=== PATIENT | male | born 1985 | race Caucasian/White ===

== ENCOUNTER 2019-05-12 19:02 | Emergency (ER) | payer SELFPAY ==
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
[2019-05-12] MEDS ORDERED: FLU Vacc QS2019-20(6MOS+)/PF 60 MCG/0.5 ML SYRINGE IM ONE (19:45)
--- NOTE | 2019-05-13 07:06 | CR ---
Right hand: Four views of the right hand were obtained. Comparison: No previous right hand study. Joint spaces are preserved. No fracture, dislocation or other bony abnormality is seen. Impression: 1. No abnormality is appreciated on right hand exam. Diagnostic code #1
== END 2019-05-12 20:29 | disposition home or self-care (01) ==
LOC: JD.ED 19:02
DX: S69.91XA Unspecified injury of right wrist, hand and finger(s), initial encounter (principal); F17.210 Nicotine dependence, cigarettes, uncomplicated; Z88.8 Allergy status to other drugs, medicaments and biological substances; W22.8XXA Striking against or struck by other objects, initial encounter; Y93.01 Activity, walking, marching and hiking
CPT/HCPCS: 73130-26-RT; 73130-RT; 90471; 90686; 99282; 99283-25

== ENCOUNTER 2020-05-19 12:26 | Inpatient (IN) | payer SELFPAY ==
[2020-05-19] MEDS ORDERED: Ondansetron 4 MG/2 ML SDV IVPUSH ONE (12:57)
[2020-05-19] MEDS ORDERED: Ibuprofen 600 MG Tab PO ONE (12:58)
[2020-05-19] MEDS ORDERED: Dextrose 5%-0.9% NaCl 1,000 ML IV SCH ×2 (13:00→15:00)
[2020-05-19] MEDS ORDERED: Linezolid 600 MG in Premix Bag 1 BAG IV ONE (13:02)
--- NOTE | 2020-05-19 13:08 | EDM.PDOC ---
ED HPI GENERAL MEDICAL PROBLEM - General Chief Complaint: Skin Complaint Stated Complaint: SKIN COMPLAINT/EXPOSED TO MRSA Time Seen by Provider: 05/19/20 12:51 Source of Information: Reports: Patient History Limitations: Reports: No Limitations - History of Present Illness INITIAL COMMENTS - FREE TEXT/NARRATIVE: 34-year-old male presents to the ED with acute onset of severe pain and swelling the right hemiface involving his upper and lower eyelid and right ear with extension of erythema and swelling to the posterior angle of his mandible and right lateral neck in zone 3. Patient reports that he has had an ongoing fungal infection involving several lesions on his hands forearms and one on each facial cheek for the last several [id number]--lesions on his hands have been present for about 3 weeks.. He states he was in contact with his ex- who apparently has recently diagnosed MRSA. Patient states he developed significant erythematous and swelling of his entire right hemiface over the last 12 to 16 hours. He has developed fever and chills overnight and this morning. In fact he is experiencing rigors in the ED. Mild associated nausea and diarrhea. States he has had 3 loose bowel movements today with no blood. Feels weak lightheaded. Patient has never had a previous MRSA infection to his knowledge. Onset: Sudden Onset Date: 05/18/20 Onset Time: 18:00 Duration: Hour(s):, Getting Worse Location: Reports: Head, Face, Neck, Upper Extremity, Left ( forearm. Lt hand and forearm), Upper Extremity, Right (Hand) Quality: Reports: Ache Severity: Severe Improves with: Reports: None Worsens with: Reports: Other (In the area. Even swallowing hurts due to the swelling in his right lateral neck.) Context: Reports: Sick Contact (From his ex- within the last week. Exposure to MRSA). Denies: Activity, Exercise, Lifting, Trauma, Other Associated Symptoms: Reports: Fever/Chills, Headaches, Loss of Appetite, Malaise, Nausea/Vomiting, Weakness, Other (Generalized. Diarrhea 3 times thus far today. Did yesterday). Denies: Cough, cough w sputum, Diaphoresis, Rash, Seizure, Shortness of Breath (Without vomiting), Syncope Treatments [employer]: Reports: Other (see below) (None.) - Related Data Allergies Allergy/AdvReac Type Severity Reaction Status Date / Time imipramine Allergy Unknown Cannot Verified 05/19/20 14:19 Remember Home Meds: Home Meds . [No Known Home Meds] 05/12/19 [History] Past Medical History - Past Health History Medical/Surgical History: Denies Medical/Surgical History Respiratory History: Reports: Asthma - Past Surgical History HEENT Surgical History: Reports: Tonsillectomy Musculoskeletal Surgical History: Reports: Other (See Below) (Previous laceration repair mid left forearm with a definitive divot in the area suggesting muscle involvement) Social & Family History - Family History Family Medical History: No Pertinent Family History - Tobacco Use Tobacco Use Status *Q: Current Some Day Tobacco User Tobacco Use Within Last Twelve Months: Cigarettes (2-5 per day.) Years of Tobacco use: 10 Packs/Tins Daily: 0.2 - Caffeine Use Caffeine Use: Reports: Energy Drinks, Soda - Living Situation & Occupation Living situation: Reports: , Other (with a friend) Occupation: Employed ([employer]) ED ROS GENERAL - Review of Systems Review Of Systems: See Below Constitutional: Reports: Fever, Chills, Malaise, Weakness, Fatigue, Decreased Appetite HEENT: Reports: Other (Hemifacial pain right ear pain with current illness) Respiratory: Reports: Cough (Minimal nonproductive cough) Cardiovascular: Reports: Lightheadedness (With current illness.). Denies: Chest Pain, Blood Pressure Problem, Claudication, Dyspnea on Exertion, Edema, Orthopnea, Palpitations Endocrine: Reports: No Symptoms GI/Abdominal: Reports: Diarrhea (Has had 2 loose stools this morning. Believes one loose stool 2 days ago and 1 or 2 yesterday.), Nausea. Denies: Hematemesis, Hematochezia, Vomiting : Reports: No Symptoms Musculoskeletal: Reports: Other (Severe pain both hands at sites of infection. Pain right throat and neck.) Skin: Reports: Other (Patient has multiple skin lesions knuckles of both hands particularly the dorsal MCP joints and PIP joint left thumb. Pustules are evident compatible with suspect MRSA infection. Patient has been using topical Lamisil cream for suspect fungal infection of the skin x3 weeks. Patient has a lesion on each facial cheek the right much larger than the left.) ED EXAM, SKIN/RASH Exam: See Below Exam Limited By: No Limitations General Appearance: Alert, Moderate Distress, Other (Patient does appear acutely ill. He has severe erythema of the entire right hemiface with edema of the upper and lower eyelid on the right side compared with cellulitis involvement. Right ear is also involved as is the entire right hemiface and right side of his neck particular at the angle of his right mandible. He feels warm to palpation. Nurses record temperature is 36.8. Heart rate was 104 and sinus tachycardia at the bedside. Respiratory rate is 18 with O2 sats of 99 to 100%. Blood pressure 131/98. He has no history of hypertension) Eye Exam: Bilateral Eye: Periorbital Changes (Marked erythema and swelling of both upper and lower eyelids with 50% closure of the right eye due to swelling and infection), PERRL Ears: Other (Right ear is diffusely erythematous particularly the superior two thirds of the ear pinna and tender to touch.) Nose: Normal Inspection Throat/Mouth: Other (Oropharynx is mildly erythematous. Tongue is dry and coated. Patient has a 1 cm circular skin lesion ulceration right facial cheek. A smaller 6 mm skin lesion present on the left facial cheek which appears to be healing. He has diffuse erythema of the entire right hemiface particular noted right temporal right forehead right angle of the mandible right ear and zone 3 right side of neck.) Head: Atraumatic, Normocephalic, Facial Swelling (Entire right hemiface is swollen due to erythema), Facial Tenderness ( and infection.). No: Sinus Tenderness ( Entire right hemiface.) Neck: Lymphadenopathy (R) (Patient does have lymphadenopathy right neck.. He is very swollen at the angle of his right mandible and there are's several lymph nodes in the posterior and anterior chain superiorly that are enlarged and tender to touch suggesting lymphadenitis. Currently infection is pretty well confined to zone 3 of the neck. It is going to spread into zone 2.). No: Supple, Non-Tender, Lymphadenopathy (L) Respiratory/Chest: No Respiratory Distress, Lungs Clear, Normal Breath Sounds, No Accessory Muscle Use Cardiovascular: Normal Peripheral Pulses, Regular Rate, Rhythm, No Edema, No Gallop, No Murmur Peripheral Pulses: 3+: Carotid (L), Carotid (R) (Very tender right side of ne ck), Posterior Tibial (L), Posterior Tibial (R), Dorsalis Pedis (L), Dorsalis Pedis (R) GI/Abdominal: Soft, Non-Tender, No Organomegaly, No Mass, Pelvis Stable, Abnormal Bowel Sounds, Other (No surgical scars.) (Male) Exam: No Hernia Back Exam: Normal Inspection, Full Range of Motion. No: CVA Tenderness (L), CVA Tenderness (R) Extremities: Other (She has numerous pustules on both hands over primarily the PIP and MCP joints of both hands. Pustules are evident on the left hand in multiple locations. A sampling of pus was obtained from lesions dorsal aspect of left thumb for suspect MRSA. The lesions have the appearance of MRSA infection. Questionable picking or neurodermatitis.) Neurological: Alert, Oriented, CN II-XII Intact, Normal Cognition Psychiatric: Normal Affect, Normal Mood Skin: Warm, Dry, Other (And has a severe cellulitis of the right hemiface including the right side of his forehead which extends up into his frontal scalp. Right temporal face. It also involves the entire right facial cheek with marked swelling at the angle of his right mandible. Currently has mild trismus. Right ear is also erythematous and tender indicating infection as well in the ear pinna. He has diffuse inflammation of his entire right lateral neck in zone 3 with pain to palpation. There is a ulceration right mid facial cheek likely acting as the nidus for infection of the skin of the face and neck. Apparently this has been present for about 12 days. He has a similar smaller lesion left facial cheek which she reports is healing. Multiple pustules on both hands with evidence of surrounding erythema and infection without cellulitis in either upper extremity.) Characteristics: Other (Pustular lesions both hands.) Associated features: Warmth, Tenderness, Swelling, Inflammation Course - Vital Signs Last Recorded V/S: Last Vital Signs Temp 36.8 C 05/19/20 12:35 Pulse 103 H 05/19/20 12:35 Resp 18 05/19/20 12:35 BP 131/98 H 05/19/20 12:35 Pulse Ox 100 05/19/20 12:35 - Orders/Labs/Meds Orders: Active Orders 24 hr Category Date Time Status CULTURE BLOOD [BC] Stat Lab 05/19/20 13:30 Received CULTURE BLOOD [BC] Stat Lab 05/19/20 13:30 Received CULTURE WOUND [RM] Stat Lab 05/19/20 13:57 Ordered DRUG SCREEN, URINE [URCHEM] Stat Lab 05/19/20 13:08 Ordered LACTIC ACID [CHEM] Stat Lab 05/19/20 13:30 Received Dextrose 5%-0.9% NaCl [Dextrose 5%-Normal Saline] 1,000 Med 05/19/20 13:00 Active ml IV ASDIRECTED Blood Culture x2 Reflex Set [OM.PC] Stat Oth 05/19/20 12:57 Ordered Medication Orders Hydromorphone HCl (Dilaudid) 0.5 mg IVPUSH Q2H PRN PRN Reason: Pain (severe 7-10) Dextrose/Sodium Chloride (Dextrose 5%-Normal Saline) 1,000 mls @ 125 mls/hr IV ASDIRECTED PAUL Last Admin: 05/19/20 13:23 Dose: 125 mls/hr Documented by: JUAREZ Piperacillin Sod/Tazobactam (Sod 4.5 gm/ Sodium Chloride) 100 mls @ 200 mls/hr IV ONETIME ONE Stop: 05/19/20 15:19 Piperacillin Sod/Tazobactam (Sod 4.5 gm/ Sodium Chloride) 100 mls @ 25 mls/hr IV Q8H PAUL Dextrose/Sodium Chloride (Dextrose 5%-Normal Saline) 1,000 mls @ 125 mls/hr IV ASDIRECTED PAUL Ibuprofen (Motrin) 600 mg PO Q6H PRN PRN Reason: Pain (moderate 4-6) Ketorolac Tromethamine (Toradol) 30 mg IV Q6H PRN PRN Reason: Pain (moderate 4-6) Nicotine (Habitrol) 7 mg TRDERM DAILY [facility] Ondansetron HCl (Zofran) 4 mg IV Q4H PRN PRN Reason: Nausea/Vomiting Vancomycin HCl (Pharmacy To Dose - Vancomycin) 1 dose .XX ASDIRECTED PRN PRN Reason: RX TO DOSE VANCO Labs: Laboratory Tests 05/19/20 05/19/20 05/19/20 Range/Units 13:05 13:05 13:05 WBC 9.83 H (4.23-9.07) K/mm3 RBC 4.87 (4.63-6.08) M/mm3 Hgb 15.3 (13.7-17.5) gm/dl Hct 43.9 (40.1-51.0) % MCV 90.1 (79.0-92.2) fl MCH 31.4 (25.7-32.2) pg MCHC 34.9 (32.2-35.5) g/dl RDW Std Deviation 39.3 (35.1-43.9) fL Plt Count 250 (163-337) K/mm3 MPV 9.9 (9.4-12.3) fl Neutrophils % (Manual) 74 H (40-60) % Band Neutrophils % 0 (0-10) % Lymphocytes % (Manual) 15 L (20-40) % Atypical Lymphs % 0 % Monocytes % (Manual) 10 (2-10) % Eosinophils % (Manual) 1 (0.8-7.0) % Basophils % (Manual) 0 L (0.2-1.2) Platelet Estimate Adequate RBC Morph Comment Normal ESR (0-15) mm/hr PT 11.2 (9.7-12.0) SECONDS INR 1.05 APTT 28.8 (21.7-31.4) SECONDS Sodium 138 (136-145) mEq/L Potassium 3.8 (3.5-5.1) mEq/L Chloride 101 (98-107) mEq/L Carbon Dioxide 27 (21-32) mEq/L Anion Gap 13.8 (5-15) BUN 10 (7-18) mg/dL Creatinine 1.1 (0.7-1.3) mg/dL Est Cr Clr Drug Dosing 105.24 mL/min Estimated GFR (MDRD) > 60 (>60) mL/min BUN/Creatinine Ratio 9.1 L (14-18) Glucose 94 (74-106) mg/dL Calcium 9.0 (8.5-10.1) mg/dL Magnesium 1.8 (1.8-2.4) mg/dl Total Bilirubin 0.7 (0.2-1.0) mg/dL AST 11 L (15-37) U/L ALT 16 (16-63) U/L Alkaline Phosphatase 83 (46-116) U/L C-Reactive Protein 8.7 H* (<1.0) mg/dL Total Protein 7.4 (6.4-8.2) g/dl Albumin 3.6 (3.4-5.0) g/dl Globulin 3.8 gm/dL Albumin/Globulin Ratio 1.0 (1-2) SARS-CoV-2 RNA (KRYSTLE) (NEGATIVE) 05/19/20 05/19/20 Range/Units 13:05 13:30 WBC (4.23-9.07) K/mm3 RBC (4.63-6.08) M/mm3 Hgb (13.7-17.5) gm/dl Hct (40.1-51.0) % MCV (79.0-92.2) fl MCH (25.7-32.2) pg MCHC (32.2-35.5) g/dl RDW Std Deviation (35.1-43.9) fL Plt Count (163-337) K/mm3 MPV (9.4-12.3) fl Neutrophils % (Manual) (40-60) % Band Neutrophils % (0-10) % Lymphocytes % (Manual) (20-40) % Atypical Lymphs % % Monocytes % (Manual) (2-10) % Eosinophils % (Manual) (0.8-7.0) % Basophils % (Manual) (0.2-1.2) Platelet Estimate RBC Morph Comment ESR 13 (0-15) mm/hr PT (9.7-12.0) SECONDS INR APTT (21.7-31.4) SECONDS Sodium (136-145) mEq/L Potassium (3.5-5.1) mEq/L Chloride (98-107) mEq/L Carbon Dioxide (21-32) mEq/L Anion Gap (5-15) BUN (7-18) mg/dL Creatinine (0.7-1.3) mg/dL Est Cr Clr Drug Dosing mL/min Estimated GFR (MDRD) (>60) mL/min BUN/Creatinine Ratio (14-18) Glucose (74-106) mg/dL Calcium (8.5-10.1) mg/dL Magnesium (1.8-2.4) mg/dl Total Bilirubin (0.2-1.0) mg/dL AST (15-37) U/L ALT (16-63) U/L Alkaline Phosphatase (46-116) U/L C-Reactive Protein (<1.0) mg/dL Total Protein (6.4-8.2) g/dl Albumin (3.4-5.0) g/dl Globulin gm/dL Albumin/Globulin Ratio (1-2) SARS-CoV-2 RNA (KRYSTLE) Negative (NEGATIVE) Meds: Medications Generic Name Dose Route Start Last Admin Trade Name Freq PRN Reason Stop Dose Admin Hydromorphone HCl 0.5 mg 05/19/20 14:42 Dilaudid IVPUSH Q2H PRN Pain (severe 7-10) Dextrose/Sodium Chloride 1,000 mls @ 125 mls/hr 05/19/20 13:00 05/19/20 13:23 Dextrose 5%-Normal Saline IV 125 mls/hr ASDIRECTED PAUL Administration Piperacillin Sod/Tazobactam 100 mls @ 200 mls/hr 05/19/20 14:50 Sod 4.5 gm/ Sodium Chloride IV 05/19/20 15:19 ONETIME ONE Piperacillin Sod/Tazobactam 100 mls @ 25 mls/hr 05/19/20 23:00 Sod 4.5 gm/ Sodium Chloride IV Q8H PAUL Dextrose/Sodium Chloride 1,000 mls @ 125 mls/hr 05/19/20 15:00 Dextrose 5%-Normal Saline IV ASDIRECTED [facility] Ibuprofen 600 mg 05/19/20 14:42 Motrin PO Q6H PRN Pain (moderate 4-6) Ketorolac Tromethamine 30 mg 05/19/20 14:42 Toradol IV Q6H PRN Pain (moderate 4-6) Nicotine 7 mg 05/20/20 09:00 Habitrol TRDERM DAILY [facility] Ondansetron HCl 4 mg 05/19/20 14:42 Zofran IV Q4H PRN Nausea/Vomiting Vancomycin HCl 1 dose 05/20/20 15:00 Pharmacy To Dose - Vancomycin .XX ASDIRECTED PRN RX TO DOSE VANCO Discontinued Medications Generic Name Dose Route Start Last Admin Trade Name Freq PRN Reason Stop Dose Admin Hydromorphone HCl 0.5 mg 05/19/20 13:46 05/19/20 14:21 Dilaudid IVPUSH 05/19/20 13:47 0.5 mg ONETIME ONE Administration Linezolid 600 mg/ Premix 300 mls @ 300 mls/hr 05/19/20 13:02 05/19/20 13:24 IV 05/19/20 14:01 300 mls/hr ONETIME ONE Administration Vancomycin HCl 2 gm/ Sodium 500 mls @ 250 mls/hr 05/19/20 13:17 Chloride IV 05/19/20 13:18 ONETIME ONE Ibuprofen 600 mg 05/19/20 12:58 05/19/20 13:25 Motrin PO 05/19/20 12:59 600 mg ONETIME ONE Administration Ondansetron HCl 4 mg 05/19/20 12:57 05/19/20 13:25 Zofran IVPUSH 05/19/20 12:58 4 mg ONETIME ONE Administration - Radiology Interpretation Free Text/Narrative:: 34-year-old male presents to the ED with a pustular dermatitis involving both hands particularly the PIP joints and MCP joints of both hands left hand slightly worse on the right. Currently pustules left thumb left dorsal index finger. Sampling obtained from the dorsal aspect of left thumb with purulent material obtained for culture. Suspect MRSA infection. He has developed a significant right hemifacial swelling involving his right ear and upper and lower eyelids and right hemiface involving his forehead up into the frontal scalp. He is also got swelling at the angle of his right mandible and right lateral neck in zone 3 which apparently developed since 1800 hrs. last night. Associated fever chills nausea and diarrhea. He denies cough. Clinically the patient has MRSA cellulitis over the right hemiface and neck. It also appears that he has multiple pustules in both hands and he reports that numerous skin lesions on his hands are being treated with topical antifungal cream for the last 3 weeks. Patient is going to require hospital admission IV antibiotics. He will be screened for COVID-19 illness. Chest x-ray will be obtained as well as a septic work-up including a lactic acid and blood cultures x2. I will start him on Zyvox 600 mg every 12 hours and initial dose of vancomycin 2 g will be administered in the ED. - Re-Assessments/Exams Free Text/Narrative Re-Assessment/Exam: 05/19/20 13:43 chest x-ray done portably reveals mildly hyperinflated lung peters. There is a early groundglass appearance to the right lower lobe medial heart border.White count is minimally elevated at 9.83 with 74% neutrophils and no bands cells reported. Hemoglobin is 15.3 with hematocrit of 43.9. PT is 11.2 with an INR slightly elevated at 1.05. PTT is 28.8. He reports pain is 7 out of 10 particularly left hand where it feels like it is throbbing and pulsating and burning. Right hemiface is throbbing and burning as well. I will therefore give him Dilaudid 0.5 mg IV. 05/19/20 15:04 Chemistry shows a sodium of 138 and a potassium of 3.8. Chloride 101 with a bicarb of 27. Anion gap is 13.8. BUN is 10 with a creatinine of 1.1. Estimated GFR is greater than 60. Glucose is 94 with a calcium of 9.0 magnesium is 1.8 liver function is normal. C-reactive protein elevated at 8.7. Total protein is normal at 7.4 with an albumin fraction of 3.6. COVID-19 screen is negative. Patient will be admitted to the med surgery floor for IV antibiotics due to suspected aggressive MRSA cellulitis of face ear and neck. Departure - Departure Time of Disposition: 15:04 Disposition: Admitted As Inpatient 65 Condition: Fair Clinical Impression: Facial cellulitis, Cellulitis of neck, Pustules determined by examination, Hand ulceration, limited to breakdown of skin, Fever and chills Skin ulcer of face Qualifiers: Non-pressure ulcer stage: limited to breakdown of skin Qualified Code(s): L98.491 - Non-pressure chronic ulcer of skin of other sites limited to breakdown of skin Cellulitis Qualifiers: Site of cellulitis: periorbital Laterality: right Qualified Code(s): L03.213 - Periorbital cellulitis - Discharge Information *PRESCRIPTION DRUG MONITORING PROGRAM REVIEWED*: Not Applicable *COPY OF PRESCRIPTION DRUG MONITORING REPORT IN PATIENT JAYCEE: Not Applicable Sepsis Event Note (ED) - Evaluation Sepsis Screening Result: No Definite Risk - Focused Exam Vital Signs: Vital Signs Temp Pulse Resp BP Pulse Ox 05/19/20 12:35 36.8 C 103 H 18 131/98 H 100 - My Orders Last 24 Hours: My Active Orders 05/19/20 12:57 Blood Culture x2 Reflex Set [OM.PC] Stat 05/19/20 13:00 Dextrose 5%-0.9% NaCl [Dextrose 5%-Normal Saline] 1,000 ml IV ASDIRECTED 05/19/20 13:08 DRUG SCREEN, URINE [URCHEM] Stat 05/19/20 13:30 CULTURE BLOOD [BC] Stat CULTURE BLOOD [BC] Stat LACTIC ACID [CHEM] Stat 05/19/20 13:57 CULTURE WOUND [RM] Stat - Assessment/Plan Last 24 Hours: My Active Orders 05/19/20 12:57 Blood Culture x2 Reflex Set [OM.PC] Stat 05/19/20 13:00 Dextrose 5%-0.9% NaCl [Dextrose 5%-Normal Saline] 1,000 ml IV ASDIRECTED 05/19/20 13:08 DRUG SCREEN, URINE [URCHEM] Stat 05/19/20 13:30 CULTURE BLOOD [BC] Stat CULTURE BLOOD [BC] Stat LACTIC ACID [CHEM] Stat 05/19/20 13:57 CULTURE WOUND [RM] Stat
[2020-05-19] MEDS ORDERED: Vancomycin 2 GM in Sodium Chloride 0.9% 500 ML IV ONE (13:17)
--- NOTE | 2020-05-19 13:41 | CR ---
Chest:: Portable view of the chest was obtained. Comparison: No prior chest imaging is available. Findings: Heart and mediastinum: Heart size and mediastinum appear within normal limits. Lungs and pleura: Lungs are clear with no acute parenchymal change. No abnormal pleural disease is seen. Bony structures: Bony structures show no discrete abnormality. Impression: 1. No acute intrathoracic process is seen on portable chest x-ray. Diagnostic code #1
[2020-05-19] MEDS ORDERED: HYDROmorphone 0.5 MG/0.5 ML Syringe IVPUSH ONE (13:46)
[2020-05-19] MEDS ORDERED: HYDROmorphone 0.5 MG/0.5 ML Syringe IVPUSH PRN (14:42)
[2020-05-19] MEDS ORDERED: Ondansetron 4 MG/2 ML SDV IV PRN (14:42)
[2020-05-19] MEDS ORDERED: Piperacillin/Tazobactam 4.5 GM in Sodium Chloride 0.9% 100 ML IV ONE (14:50)
--- NOTE | 2020-05-19 15:33 | PCM.HP.2 ---
H&P History of Present Illness - General Date of Service: 05/19/20 Admit Problem/Dx: Admission Diagnosis/Problem Admission Diagnosis/Problem Cellulitis Source of Information: Patient, Provider History Limitations: Reports: No Limitations - History of Present Illness Initial Comments - Free Text/Narative: 34-year-old male presents to the ED with acute onset of severe pain and swelling the right hemiface involving his upper and lower eyelid and right ear with extension of erythema and swelling to the posterior angle of his mandible and right lateral neck in zone 3. Patient reports that he has had an ongoing fungal infection involving several lesions on his hands forearms and one on each facial cheek for the last several [id number]--lesions on his hands have been present for about 3 weeks.. He states he was in contact with his ex- who apparently has recently diagnosed MRSA. Patient states he developed significant erythematous and swelling of his entire right hemiface that started about 3 days ago. He applied antifungal cream to his face and he states that initially it got better, but then significantly worse yesterday. He has developed fever and chills overnight and this morning. In fact he is experiencing rigors in the ED. Mild associated nausea and diarrhea. States he has had 3 loose bowel movements today with no blood. Feels weak lightheaded. Patient has never had a previous MRSA infection to his knowledge. Onset of Symptoms: Reports: Gradual - Related Data Allergies/Adverse Reactions: Allergies Allergy/AdvReac Type Severity Reaction Status Date / Time imipramine Allergy Unknown Cannot Verified 05/19/20 14:19 Remember Home Medications: Home Meds . [No Known Home Meds] 05/12/19 [History] Past Medical History - Past Health History Medical/Surgical History: Denies Medical/Surgical History Respiratory History: Reports: Asthma - Past Surgical History HEENT Surgical History: Reports: Tonsillectomy Musculoskeletal Surgical History: Reports: Other (See Below) (Previous laceration repair mid left forearm with a definitive divot in the area suggesting muscle involvement) Social & Family History - Family History Family Medical History: No Pertinent Family History - Tobacco Use Tobacco Use Status *Q: Current Some Day Tobacco User Years of Tobacco use: 10 Packs/Tins Daily: 0.2 - Caffeine Use Caffeine Use: Reports: Energy Drinks, Soda - Living Situation & Occupation Living situation: Reports: , Other (with a friend) Occupation: Employed ([email or web address]) H&P Review of Systems - Review of Systems: Review Of Systems: See Below General: Reports: Fever, Chills, Malaise HEENT: Reports: No Symptoms Pulmonary: Reports: No Symptoms Cardiovascular: Reports: No Symptoms Gastrointestinal: Reports: Diarrhea. Denies: Nausea, Vomiting Genitourinary: Reports: No Symptoms Musculoskeletal: Reports: No Symptoms Skin: Reports: Other (cellulitis noted to the entire right side of his face and forehead, right ear, and right side of his neck) Psychiatric: Reports: No Symptoms Neurological: Reports: No Symptoms Hematologic/Lymphatic: Reports: No Symptoms Immunologic: Reports: No Symptoms Exam - Exam Exam: See Below - Vital Signs Vital Signs: Last Vital Signs Temp 98.3 F 05/19/20 12:35 Pulse 103 H 05/19/20 12:35 Resp 18 05/19/20 12:35 BP 131/98 H 05/19/20 12:35 Pulse Ox 100 05/19/20 12:35 Weight: 175 lb - Exam General: Alert, Oriented, Cooperative HEENT: Conjunctiva Clear, EOMI, Hearing Intact, Mucosa Moist & [place], Pupils Equal, Pupils Reactive Neck: Supple, Trachea Midline, Lymphadenopathy (right preauricular, mandibular, anterior cervical, post auricular, tonsillar) Lungs: Clear to Auscultation, Normal Respiratory Effort Cardiovascular: Regular Rate, Regular Rhythm GI/Abdominal Exam: Normal Bowel Sounds, Soft, Non-Tender, No Distention (Male) Exam: Deferred Rectal (Males) Exam: Deferred Back Exam: Normal Inspection, Full Range of Motion Extremities: Normal Inspection, Normal Range of Motion, Non-Tender, No Pedal Edema, Normal Capillary Refill Peripheral Pulses: 2+: Radial (L), Radial (R), Dorsalis Pedis (L), Dorsalis Pedis (R) Skin: Warm, Dry, Other (approx 20 scabbed/weeping ulcers noted to bilateral knuckles, scabbed weaping ulcer noted to right cheek, area of pustules noted to right side of forehead, right facial swelling noted mid forehead around right eye down to right mandible, significant swelling noted to right ear and down the right side of patient's neck) Neurological: Cranial Nerves Intact Neuro Extensive - Mental Status: Alert, Oriented x3, Normal Mood/Affect, Normal Cognition, Memory Intact Neuro Extensive - Motor, Sensory, Reflexes: Normal Gait Psychiatric: Alert, Normal Affect, Normal Mood - Patient Data Lab Results Last 24 hrs: Laboratory Results - last 24 hr 05/19/20 05/19/20 05/19/20 Range/Units 13:05 13:05 13:05 WBC 9.83 H (4.23-9.07) K/mm3 RBC 4.87 (4.63-6.08) M/mm3 Hgb 15.3 (13.7-17.5) gm/dl Hct 43.9 (40.1-51.0) % MCV 90.1 (79.0-92.2) fl MCH 31.4 (25.7-32.2) pg MCHC 34.9 (32.2-35.5) g/dl RDW Std Deviation 39.3 (35.1-43.9) fL Plt Count 250 (163-337) K/mm3 MPV 9.9 (9.4-12.3) fl Neutrophils % (Manual) 74 H (40-60) % Band Neutrophils % 0 (0-10) % Lymphocytes % (Manual) 15 L (20-40) % Atypical Lymphs % 0 % Monocytes % (Manual) 10 (2-10) % Eosinophils % (Manual) 1 (0.8-7.0) % Basophils % (Manual) 0 L (0.2-1.2) Platelet Estimate Adequate RBC Morph Comment Normal ESR (0-15) mm/hr PT 11.2 (9.7-12.0) SECONDS INR 1.05 APTT 28.8 (21.7-31.4) SECONDS Sodium 138 (136-145) mEq/L Potassium 3.8 (3.5-5.1) mEq/L Chloride 101 (98-107) mEq/L Carbon Dioxide 27 (21-32) mEq/L Anion Gap 13.8 (5-15) BUN 10 (7-18) mg/dL Creatinine 1.1 (0.7-1.3) mg/dL Est Cr Clr Drug Dosing 105.24 mL/min Estimated GFR (MDRD) > 60 (>60) mL/min BUN/Creatinine Ratio 9.1 L (14-18) Glucose 94 (74-106) mg/dL Lactic Acid (0.4-2.0) mmol/L Calcium 9.0 (8.5-10.1) mg/dL Magnesium 1.8 (1.8-2.4) mg/dl Total Bilirubin 0.7 (0.2-1.0) mg/dL AST 11 L (15-37) U/L ALT 16 (16-63) U/L Alkaline Phosphatase 83 (46-116) U/L C-Reactive Protein 8.7 H* (<1.0) mg/dL Total Protein 7.4 (6.4-8.2) g/dl Albumin 3.6 (3.4-5.0) g/dl Globulin 3.8 gm/dL Albumin/Globulin Ratio 1.0 (1-2) SARS-CoV-2 RNA (KRYSTLE) (NEGATIVE) 05/19/20 05/19/20 05/19/20 Range/Units 13:05 13:30 13:30 WBC (4.23-9.07) K/mm3 RBC (4.63-6.08) M/mm3 Hgb (13.7-17.5) gm/dl Hct (40.1-51.0) % MCV (79.0-92.2) fl MCH (25.7-32.2) pg MCHC (32.2-35.5) g/dl RDW Std Deviation (35.1-43.9) fL Plt Count (163-337) K/mm3 MPV (9.4-12.3) fl Neutrophils % (Manual) (40-60) % Band Neutrophils % (0-10) % Lymphocytes % (Manual) (20-40) % Atypical Lymphs % % Monocytes % (Manual) (2-10) % Eosinophils % (Manual) (0.8-7.0) % Basophils % (Manual) (0.2-1.2) Platelet Estimate RBC Morph Comment ESR 13 (0-15) mm/hr PT (9.7-12.0) SECONDS INR APTT (21.7-31.4) SECONDS Sodium (136-145) mEq/L Potassium (3.5-5.1) mEq/L Chloride (98-107) mEq/L Carbon Dioxide (21-32) mEq/L Anion Gap (5-15) BUN (7-18) mg/dL Creatinine (0.7-1.3) mg/dL Est Cr Clr Drug Dosing mL/min Estimated GFR (MDRD) (>60) mL/min BUN/Creatinine Ratio (14-18) Glucose (74-106) mg/dL Lactic Acid 1.0 (0.4-2.0) mmol/L Calcium (8.5-10.1) mg/dL Magnesium (1.8-2.4) mg/dl Total Bilirubin (0.2-1.0) mg/dL AST (15-37) U/L ALT (16-63) U/L Alkaline Phosphatase (46-116) U/L C-Reactive Protein (<1.0) mg/dL Total Protein (6.4-8.2) g/dl Albumin (3.4-5.0) g/dl Globulin gm/dL Albumin/Globulin Ratio (1-2) SARS-CoV-2 RNA (KRYSTLE) Negative (NEGATIVE) Result Diagrams: 05/19/20 13:05 05/19/20 13:05 Sepsis Event Note - Evaluation Sepsis Screening Result: No Definite Risk - Focused Exam Vital Signs: Vital Signs Temp Pulse Resp BP Pulse Ox 05/19/20 12:35 98.3 F 103 H 18 131/98 H 100 - Problem List (1) Cellulitis of neck SNOMED Code(s): 99766764 ICD Code: L03.221 - CELLULITIS OF NECK Status: Acute Priority: High Current Visit: Yes (2) Facial cellulitis SNOMED Code(s): 002133291 ICD Code: L03.211 - CELLULITIS OF FACE Status: Acute Priority: High Current Visit: Yes (3) Fever and chills SNOMED Code(s): 531082617 ICD Code: R50.9 - FEVER, UNSPECIFIED Status: Acute Priority: High Current Visit: Yes (4) Hand ulceration, limited to breakdown of skin SNOMED Code(s): 87816052, 554528573, 473421825 ICD Code: L98.491 - NON-PRS CHRONIC ULCER SKIN/ SITES LIMITED TO BRKDWN SKIN Status: Acute Priority: High Current Visit: Yes (5) Pustules determined by examination SNOMED Code(s): 198224319 ICD Code: L08.9 - LOCAL INFECTION OF THE SKIN AND SUBCUTANEOUS TISSUE, UNSP Status: Acute Priority: High Current Visit: Yes (6) Skin ulcer of face SNOMED Code(s): 219830128 ICD Code: L98.499 - NON-PRESSURE CHRONIC ULCER OF SKIN OF SITES W UNSP SEVERITY Status: Acute Priority: High Current Visit: Yes Qualifiers: Non-pressure ulcer stage: limited to breakdown of skin Qualified Code(s): L98.491 - Non-pressure chronic ulcer of skin of other sites limited to breakdown of skin Problem List Initiated/Reviewed/Updated: Yes Orders Last 24hrs: Active Orders 24 hr Category Date Time Status Admission Status [Patient Status] [ADT] Routine ADT 05/19/20 15:07 Active Patient Status [ADT] Routine ADT 05/19/20 14:42 Active Ambulate [RC] ASDIRECTED Care 05/19/20 14:42 Active Ambulate [RC] PER UNIT ROUTINE Care 05/19/20 14:44 Active Oxygen Therapy [RC] PRN Care 05/19/20 14:42 Active VTE/DVT Education [RC] PER UNIT ROUTINE Care 05/19/20 14:42 Active Vital Signs [RC] Q4H Care 05/19/20 14:42 Active Regular Diet [DIET] Diet 05/19/20 Dinner Active BASIC METABOLIC PANEL,BMP [CHEM] AM Lab 05/20/20 05:11 Ordered CBC WITH AUTO DIFF [HEME] AM Lab 05/20/20 05:11 Ordered CULTURE BLOOD [BC] Stat Lab 05/19/20 13:30 Received CULTURE BLOOD [BC] Stat Lab 05/19/20 13:30 Received CULTURE WOUND [RM] Stat Lab 05/19/20 13:57 Ordered DRUG SCREEN, URINE [URCHEM] Stat Lab 05/19/20 13:08 Ordered VANCOMYCIN TROUGH [CHEM] Timed Lab 05/20/20 14:00 Ordered Dextrose 5%-0.9% NaCl [Dextrose 5%-Normal Saline] 1,000 Med 05/19/20 13:00 Active ml IV ASDIRECTED Dextrose 5%-0.9% NaCl [Dextrose 5%-Normal Saline] 1,000 Med 05/19/20 15:00 Active ml IV ASDIRECTED HYDROmorphone [Dilaudid] Med 05/19/20 14:42 Active 0.5 mg IVPUSH Q2H PRN Ibuprofen [Motrin] Med 05/19/20 14:42 Active 600 mg PO Q6H PRN Ketorolac [Toradol] Med 05/19/20 14:42 Active 30 mg IV Q6H PRN Nicotine [Habitrol] Med 05/20/20 09:00 Active 7 mg TRDERM DAILY Ondansetron [Zofran] Med 05/19/20 14:42 Active 4 mg IV Q4H PRN Pharmacy to Dose - Vancomycin Med 05/20/20 15:00 Active 1 dose .XX ASDIRECTED PRN Piperacillin/Tazobactam [Piperacil-Tazobact] 4.5 gm Med 05/20/20 00:30 Active Sodium Chloride 0.9% [Normal Saline] 100 ml IV Q8H Vancomycin 1 gm Med 05/19/20 23:00 Active Vancomycin 250 mg Sodium Chloride 0.9% [Normal Saline] 250 ml IV Q8H Blood Culture x2 Reflex Set [OM.PC] Stat Oth 05/19/20 12:57 Ordered Resuscitation Status Routine Resus Stat 05/19/20 14:42 Ordered Medication Orders Hydromorphone HCl (Dilaudid) 0.5 mg IVPUSH Q2H PRN PRN Reason: Pain (severe 7-10) Dextrose/Sodium Chloride (Dextrose 5%-Normal Saline) 1,000 mls @ 125 mls/hr IV ASDIRECTED [facility] Last Admin: 05/19/20 13:23 Dose: 125 mls/hr Documented by: [email or web address] Piperacillin Sod/Tazobactam (Sod 4.5 gm/ Sodium Chloride) 100 mls @ 25 mls/hr IV Q8H [facility] Dextrose/Sodium Chloride (Dextrose 5%-Normal Saline) 1,000 mls @ 125 mls/hr IV ASDIRECTED [facility] Vancomycin HCl 1 gm/Vancomycin HCl 250 mg/ Sodium Chloride 250 mls @ 166.667 mls/hr IV Q8H [facility] Ibuprofen (Motrin) 600 mg PO Q6H PRN PRN Reason: Pain (moderate 4-6) Ketorolac Tromethamine (Toradol) 30 mg IV Q6H PRN PRN Reason: Pain (moderate 4-6) Nicotine (Habitrol) 7 mg TRDERM DAILY [facility] Ondansetron HCl (Zofran) 4 mg IV Q4H PRN PRN Reason: Nausea/Vomiting Vancomycin HCl (Pharmacy To Dose - Vancomycin) 1 dose .XX ASDIRECTED PRN PRN Reason: RX TO DOSE VANCO Assessment/Plan Comment:: 05/19/20 * 34-year-old male with gradual onset (over the course of the last 3 days ) of facial swelling * Reports ongoing fungal infection involving several lesions on his hands and forearms and one on each facial cheek for about 3 weeks. * Reports recent exposure to MRSA. * Denies previous MRSA infection * Initial vital signs in the emergency department reveal a temp of 36.8 Celsius, pulse 103, respiratory rate 18, blood pressure 131/98, pulse ox 100% on room air. * Labs in the ED reveal: WBC 9.83, ESR 13, C-reactive protein 8.7, lactic acid 1.0 and the patient is Covid negative. * The patient did receive linezolid 600 mg IV and vancomycin 2 g IV in the emergency department. * Wound cultures and blood cultures were obtained prior to starting antibiotics PLAN: Cellulitis of neck, Facial cellulitis, Fever and chills, Hand ulceration, limited to breakdown of skin, Pustules determined by examination, Skin ulcer of face * Admit to [facility] * Patient will receive IV vancomycin with pharmacy to dose and IV Zosyn to treat cellulitis. * Awaiting culture and sensitivity report that was obtained in the emergency department * D5NS at 125 an hour * Patient to be up independently and ambulate in his room * Vital signs every 4 hours * Obtain urine drug screen that was ordered in the emergency department * Pain control * Contact isolation precautions * Regular diet * Repeat labs in the a.m. specifically inflammatory markers - Mortality Measure Prognosis:: Good
[2020-05-19] MEDS: Ibuprofen 600 MG Tab PO PRN (21:05)
[2020-05-19] MEDS: Vancomycin 1 GM, Vancomycin 250 MG in Sodium Chloride 0.9% 250 ML IV SCH (23:20)
[2020-05-20] MEDS: Piperacillin/Tazobactam 4.5 GM in Sodium Chloride 0.9% 100 ML IV SCH ×3 (02:36→17:42)
[2020-05-20] MEDS: Vancomycin 1 GM, Vancomycin 250 MG in Sodium Chloride 0.9% 250 ML IV SCH ×2 (06:57→15:44)
[2020-05-20] MEDS: Ketorolac 30 MG/ML SDV IV PRN ×2 (07:24→15:45)
[2020-05-20] MEDS: Nicotine 7 MG/24 Hr Patch TRDERM SCH (09:05)
--- NOTE | 2020-05-20 14:05 | PCM.PN ---
- General Info Date of Service: 05/20/20 Admission Dx/Problem (Free Text): Admission Diagnosis/Problem Admission Diagnosis/Problem Cellulitis Subjective Update: Patient doing better today. Significant amount of decrease in swelling and redness to patient's face ear and right side of neck. Functional Status: Reports: Pain Controlled, Tolerating Diet, Ambulating, Urinating - Review of Systems General: Reports: Chills HEENT: Reports: No Symptoms Pulmonary: Reports: No Symptoms Cardiovascular: Reports: No Symptoms Gastrointestinal: Reports: No Symptoms Genitourinary: Reports: No Symptoms Musculoskeletal: Reports: No Symptoms Skin: Reports: Other Neurological: Reports: No Symptoms Psychiatric: Reports: No Symptoms - Patient Data Vitals - Most Recent: Last Vital Signs Temp 97.5 F 05/20/20 08:01 Pulse 71 05/20/20 08:01 Resp 16 05/20/20 08:01 BP 103/66 05/20/20 08:01 Pulse Ox 95 05/20/20 08:01 Weight - Most Recent: 174 lb I&O - Last 24 Hours: Intake & Output 05/19/20 05/20/20 05/20/20 22:59 06:59 14:59 Intake Total 240 1967 180 Balance 240 1967 180 Lab Results Last 24 Hours: Laboratory Results - last 24 hr 05/19/20 05/19/20 05/19/20 Range/Units 13:05 13:05 13:30 WBC (4.23-9.07) K/mm3 RBC (4.63-6.08) M/mm3 Hgb (13.7-17.5) gm/dl Hct (40.1-51.0) % MCV (79.0-92.2) fl MCH (25.7-32.2) pg MCHC (32.2-35.5) g/dl RDW Std Deviation (35.1-43.9) fL Plt Count (163-337) K/mm3 MPV (9.4-12.3) fl Neut % (Auto) (34.0-67.9) % Lymph % (Auto) (21.8-53.1) % Blanco % (Auto) (5.3-12.2) % Eos % (Auto) (0.8-7.0) Baso % (Auto) (0.1-1.2) % Neut # (Auto) (1.78-5.38) K/mm3 Lymph # (Auto) (1.32-3.57) K/mm3 Blanco # (Auto) (0.30-0.82) K/mm3 Eos # (Auto) (0.04-0.54) K/mm3 Baso # (Auto) (0.01-0.08) K/mm3 ESR 13 (0-15) mm/hr Sodium 138 (136-145) mEq/L Potassium 3.8 (3.5-5.1) mEq/L Chloride 101 (98-107) mEq/L Carbon Dioxide 27 (21-32) mEq/L Anion Gap 13.8 (5-15) BUN 10 (7-18) mg/dL Creatinine 1.1 (0.7-1.3) mg/dL Est Cr Clr Drug Dosing 105.24 mL/min Estimated GFR (MDRD) > 60 (>60) mL/min BUN/Creatinine Ratio 9.1 L (14-18) Glucose 94 (74-106) mg/dL Lactic Acid (0.4-2.0) mmol/L Calcium 9.0 (8.5-10.1) mg/dL Magnesium 1.8 (1.8-2.4) mg/dl Total Bilirubin 0.7 (0.2-1.0) mg/dL AST 11 L (15-37) U/L ALT 16 (16-63) U/L Alkaline Phosphatase 83 (46-116) U/L C-Reactive Protein 8.7 H* (<1.0) mg/dL Total Protein 7.4 (6.4-8.2) g/dl Albumin 3.6 (3.4-5.0) g/dl Globulin 3.8 gm/dL Albumin/Globulin Ratio 1.0 (1-2) Urine Opiates Screen (QUJZBH=521) Ur Buprenorphine Scrn (CUTOFF=10) Ur Oxycodone Screen (EBN4AS=037) Urine Methadone Screen (FQH0YL=283) Ur Propoxyphene Screen (ZWUDQJ=439) Ur Barbiturates Screen (RYVHBU=614) Ur Tricyclics Screen (YIVFWH=932) Ur Phencyclidine Scrn (CUTOFF=25) Ur Amphetamine Screen (KPBLZH=116) U Methamphetamines Scrn (LLRDZQ=804) U Benzodiazepines Scrn (KDQYTN=222) U Cocaine Metab Screen (BQHGTR=206) U Marijuana (THC) Screen (CUTOFF=50) SARS-CoV-2 RNA (KRYSTLE) Negative (NEGATIVE) 05/19/20 05/20/20 05/20/20 Range/Units 13:30 00:00 04:34 WBC 4.90 (4.23-9.07) K/mm3 RBC 4.24 L (4.63-6.08) M/mm3 Hgb 13.0 L D (13.7-17.5) gm/dl Hct 39.1 L (40.1-51.0) % MCV 92.2 (79.0-92.2) fl MCH 30.7 (25.7-32.2) pg MCHC 33.2 (32.2-35.5) g/dl RDW Std Deviation 40.5 (35.1-43.9) fL Plt Count 201 (163-337) K/mm3 MPV 10.7 (9.4-12.3) fl Neut % (Auto) 54.6 (34.0-67.9) % Lymph % (Auto) 31.4 (21.8-53.1) % Blanco % (Auto) 12.2 (5.3-12.2) % Eos % (Auto) 1.4 (0.8-7.0) Baso % (Auto) 0.2 (0.1-1.2) % Neut # (Auto) 2.67 (1.78-5.38) K/mm3 Lymph # (Auto) 1.54 (1.32-3.57) K/mm3 Blanco # (Auto) 0.60 (0.30-0.82) K/mm3 Eos # (Auto) 0.07 (0.04-0.54) K/mm3 Baso # (Auto) 0.01 (0.01-0.08) K/mm3 ESR (0-15) mm/hr Sodium (136-145) mEq/L Potassium (3.5-5.1) mEq/L Chloride (98-107) mEq/L Carbon Dioxide (21-32) mEq/L Anion Gap (5-15) BUN (7-18) mg/dL Creatinine (0.7-1.3) mg/dL Est Cr Clr Drug Dosing mL/min Estimated GFR (MDRD) (>60) mL/min BUN/Creatinine Ratio (14-18) Glucose (74-106) mg/dL Lactic Acid 1.0 (0.4-2.0) mmol/L Calcium (8.5-10.1) mg/dL Magnesium (1.8-2.4) mg/dl Total Bilirubin (0.2-1.0) mg/dL AST (15-37) U/L ALT (16-63) U/L Alkaline Phosphatase (46-116) U/L C-Reactive Protein (<1.0) mg/dL Total Protein (6.4-8.2) g/dl Albumin (3.4-5.0) g/dl Globulin gm/dL Albumin/Globulin Ratio (1-2) Urine Opiates Screen Negative (UIQNSO=607) Ur Buprenorphine Scrn Negative (CUTOFF=10) Ur Oxycodone Screen Negative (LVJ1HX=044) Urine Methadone Screen Negative (WVJ5NX=866) Ur Propoxyphene Screen Negative (CATBKP=348) Ur Barbiturates Screen Negative (QASODO=086) Ur Tricyclics Screen Negative (NTTMZI=766) Ur Phencyclidine Scrn Negative (CUTOFF=25) Ur Amphetamine Screen Presumptive positive H (IOVORA=815) U Methamphetamines Scrn Presumptive positive H (BZYDAO=135) U Benzodiazepines Scrn Negative (FPKCTT=730) U Cocaine Metab Screen Negative (TRRNMW=249) U Marijuana (THC) Screen Presumptive positive H (CUTOFF=50) SARS-CoV-2 RNA (KRYSTLE) (NEGATIVE) 05/20/20 Range/Units 04:34 WBC (4.23-9.07) K/mm3 RBC (4.63-6.08) M/mm3 Hgb (13.7-17.5) gm/dl Hct (40.1-51.0) % MCV (79.0-92.2) fl MCH (25.7-32.2) pg MCHC (32.2-35.5) g/dl RDW Std Deviation (35.1-43.9) fL Plt Count (163-337) K/mm3 MPV (9.4-12.3) fl Neut % (Auto) (34.0-67.9) % Lymph % (Auto) (21.8-53.1) % Blanco % (Auto) (5.3-12.2) % Eos % (Auto) (0.8-7.0) Baso % (Auto) (0.1-1.2) % Neut # (Auto) (1.78-5.38) K/mm3 Lymph # (Auto) (1.32-3.57) K/mm3 Blanco # (Auto) (0.30-0.82) K/mm3 Eos # (Auto) (0.04-0.54) K/mm3 Baso # (Auto) (0.01-0.08) K/mm3 ESR (0-15) mm/hr Sodium 138 (136-145) mEq/L Potassium 3.8 (3.5-5.1) mEq/L Chloride 105 (98-107) mEq/L Carbon Dioxide 26 (21-32) mEq/L Anion Gap 10.8 (5-15) BUN 8 (7-18) mg/dL Creatinine 1.0 (0.7-1.3) mg/dL Est Cr Clr Drug Dosing 115.10 mL/min Estimated GFR (MDRD) > 60 (>60) mL/min BUN/Creatinine Ratio 8.0 L (14-18) Glucose 98 (74-106) mg/dL Lactic Acid (0.4-2.0) mmol/L Calcium 8.0 L (8.5-10.1) mg/dL Magnesium (1.8-2.4) mg/dl Total Bilirubin (0.2-1.0) mg/dL AST (15-37) U/L ALT (16-63) U/L Alkaline Phosphatase (46-116) U/L C-Reactive Protein (<1.0) mg/dL Total Protein (6.4-8.2) g/dl Albumin (3.4-5.0) g/dl Globulin gm/dL Albumin/Globulin Ratio (1-2) Urine Opiates Screen (GBKSGW=533) Ur Buprenorphine Scrn (CUTOFF=10) Ur Oxycodone Screen (YIV9RO=185) Urine Methadone Screen (CIM9OZ=889) Ur Propoxyphene Screen (BQCMYR=099) Ur Barbiturates Screen (ALAQAU=409) Ur Tricyclics Screen (PYJGRQ=642) Ur Phencyclidine Scrn (CUTOFF=25) Ur Amphetamine Screen (GCFDCP=692) U Methamphetamines Scrn (TKPDXC=681) U Benzodiazepines Scrn (RCHDML=503) U Cocaine Metab Screen (JFTMPB=321) U Marijuana (THC) Screen (CUTOFF=50) SARS-CoV-2 RNA (KRYSTLE) (NEGATIVE) [place] Results Last 24 Hours: Microbiology 05/19/20 13:30 Aerobic Blood Culture - Preliminary Blood - Venous NO GROWTH AFTER 1 DAY Anaerobic Blood Culture - Preliminary NO GROWTH AFTER 1 DAY 05/19/20 13:30 Aerobic Blood Culture - Preliminary Blood - Venous - Lab Draw NO GROWTH AFTER 1 DAY Anaerobic Blood Culture - Preliminary NO GROWTH AFTER 1 DAY Med Orders - Current: Current Medications Hydromorphone HCl (Dilaudid) 0.5 mg IVPUSH Q2H PRN PRN Reason: Pain (severe 7-10) Last Admin: 05/19/20 23:24 Dose: 0.5 mg Documented by: Piperacillin Sod/Tazobactam (Sod 4.5 gm/ Sodium Chloride) 100 mls @ 25 mls/hr IV Q8H [facility] Last Admin: 05/20/20 08:53 Dose: 25 mls/hr Documented by: Vancomycin HCl 1 gm/Vancomycin HCl 250 mg/ Sodium Chloride 250 mls @ 166.667 mls/hr IV Q8H [facility] Last Admin: 05/20/20 06:57 Dose: 166.667 mls/hr Documented by: Ibuprofen (Motrin) 600 mg PO Q6H PRN PRN Reason: Pain (moderate 4-6) Last Admin: 05/19/20 21:05 Dose: 600 mg Documented by: Ketorolac Tromethamine (Toradol) 30 mg IV Q6H PRN PRN Reason: Pain (moderate 4-6) Last Admin: 05/20/20 07:24 Dose: 30 mg Documented by: Nicotine (Habitrol) 7 mg TRDERM DAILY [facility] Last Admin: 05/20/20 09:05 Dose: Not Given Documented by: Ondansetron HCl (Zofran) 4 mg IV Q4H PRN PRN Reason: Nausea/Vomiting Vancomycin HCl (Pharmacy To Dose - Vancomycin) 1 dose .XX ASDIRECTED PRN PRN Reason: RX TO DOSE VANCO Discontinued Medications Hydromorphone HCl (Dilaudid) 0.5 mg IVPUSH ONETIME ONE Stop: 05/19/20 13:47 Last Admin: 05/19/20 14:21 Dose: 0.5 mg Documented by: Dextrose/Sodium Chloride (Dextrose 5%-Normal Saline) 1,000 mls @ 125 mls/hr IV ASDIRECTED [facility] Last Admin: 05/19/20 13:23 Dose: 125 mls/hr Documented by: Linezolid 600 mg/ Premix 300 mls @ 300 mls/hr IV ONETIME ONE Stop: 05/19/20 14:01 Last Admin: 05/19/20 13:24 Dose: 300 mls/hr Documented by: Vancomycin HCl 2 gm/ Sodium (Chloride) 500 mls @ 250 mls/hr IV ONETIME ONE Stop: 05/19/20 13:18 Last Admin: 05/19/20 15:02 Dose: 250 mls/hr Documented by: Piperacillin Sod/Tazobactam (Sod 4.5 gm/ Sodium Chloride) 100 mls @ 200 mls/hr IV ONETIME ONE Stop: 05/19/20 15:19 Last Admin: 05/19/20 17:42 Dose: 200 mls/hr Documented by: Dextrose/Sodium Chloride (Dextrose 5%-Normal Saline) 1,000 mls @ 125 mls/hr IV ASDIRECTED [facility] Last Admin: 05/19/20 21:16 Dose: 125 mls/hr Documented by: Ibuprofen (Motrin) 600 mg PO ONETIME ONE Stop: 05/19/20 12:59 Last Admin: 05/19/20 13:25 Dose: 600 mg Documented by: Ondansetron HCl (Zofran) 4 mg IVPUSH ONETIME ONE Stop: 05/19/20 12:58 Last Admin: 05/19/20 13:25 Dose: 4 mg Documented by: - Exam Quality Assessment: DVT Prophylaxis. No: Supplemental Oxygen General: Alert, Oriented, Cooperative, No Acute Distress HEENT: Pupils Equal, Pupils Reactive, Mucous Membr. Moist/[place] Neck: Supple, Trachea Midline. No: Lymphadenopathy Lungs: Clear to Auscultation, Normal Respiratory Effort Cardiovascular: Regular Rate, Regular Rhythm, No Murmurs GI/Abdominal Exam: Normal Bowel Sounds, Soft, Non-Tender, No Distention (Male) Exam: Deferred Back Exam: Normal Inspection, Full Range of Motion Extremities: Normal Inspection, Normal Range of Motion, Non-Tender, No Pedal Edema, Limited Range of Motion Peripheral Pulses: 2+: Radial (L), Radial (R), Dorsalis Pedis (L), Dorsalis Pedis (R) Skin: Other (Erythema noted to right side of forehead right side of face down patient's cheek and mandible right ear with erythema and edema. Less erythema noted to right side of neck. Patient does have a small area of pustules above right eyebrow. Numerous scabs noted to his bilateral hands and forearms. No drainage noted from these) Neurological: No New Focal Deficit Psy/Mental Status: Alert, Normal Affect, Normal Mood Sepsis Event Note - Evaluation Sepsis Screening Result: No Definite Risk - Focused Exam Vital Signs: Vital Signs Temp Pulse Resp BP Pulse Ox 05/20/20 08:01 97.5 F 71 16 103/66 95 05/20/20 05:13 97.7 F 67 14 99/65 95 - Problem List & Annotations (1) Cellulitis of neck SNOMED Code(s): 01599722 Code(s): L03.221 - CELLULITIS OF NECK Status: Acute Priority: High Current Visit: Yes (2) Facial cellulitis SNOMED Code(s): 281601465 Code(s): L03.211 - CELLULITIS OF FACE Status: Acute Priority: High Current Visit: Yes (3) Fever and chills SNOMED Code(s): 078692063 Code(s): R50.9 - FEVER, UNSPECIFIED Status: Acute Priority: High Current Visit: Yes (4) Hand ulceration, limited to breakdown of skin SNOMED Code(s): 29246223, 850590975, 428068026 Code(s): L98.491 - NON-PRS CHRONIC ULCER SKIN/ SITES LIMITED TO BRKDWN SKIN Status: Acute Priority: High Current Visit: Yes (5) Pustules determined by examination SNOMED Code(s): 883986000 Code(s): L08.9 - LOCAL INFECTION OF THE SKIN AND SUBCUTANEOUS TISSUE, UNSP Status: Acute Priority: High Current Visit: Yes (6) Skin ulcer of face SNOMED Code(s): 605754001 Code(s): L98.499 - NON-PRESSURE CHRONIC ULCER OF SKIN OF SITES W UNSP SEVERITY Status: Acute Priority: High Current Visit: Yes Qualifiers: Non-pressure ulcer stage: limited to breakdown of skin Qualified Code(s): L98.491 - Non-pressure chronic ulcer of skin of other sites limited to breakdown of skin - Problem List Review Problem List Initiated/Reviewed/Updated: Yes - My Orders Last 24 Hours: My Active Orders 05/19/20 14:42 Patient Status [ADT] Routine Oxygen Therapy [RC] PRN VTE/DVT Education [RC] PER UNIT ROUTINE Vital Signs [RC] Q4HR HYDROmorphone [Dilaudid] 0.5 mg IVPUSH Q2H PRN Ibuprofen [Motrin] 600 mg PO Q6H PRN Ketorolac [Toradol] 30 mg IV Q6H PRN Ondansetron [Zofran] 4 mg IV Q4H PRN Resuscitation Status Routine 05/19/20 14:44 Ambulate [RC] PER UNIT ROUTINE 05/19/20 Dinner Regular Diet [DIET] 05/19/20 23:00 Vancomycin 1 gm Vancomycin 250 mg Sodium Chloride 0.9% [Normal Saline] 250 ml IV Q8H 05/20/20 01:00 Piperacillin/Tazobactam [Piperacil-Tazobact] 4.5 gm Sodium Chloride 0.9% [Normal Saline] 100 ml IV Q8H 05/20/20 09:00 Nicotine [Habitrol] 7 mg TRDERM DAILY 05/20/20 14:00 VANCOMYCIN TROUGH [CHEM] Timed 05/20/20 15:00 Pharmacy to Dose - Vancomycin 1 dose .XX ASDIRECTED PRN - Assessment Assessment:: 05/20/20 * Currently on vancomycin and Zosyn to treat cellulitis * Blood cultures show no growth after 1 day * Awaiting wound culture and sensitivity results * Patient's urine drug screen showing positive for methamphetamine and amphetamine and marijuana. Patient adamantly denies using amphetamine or methamphetamine. * Labs essentially unremarkable today * Signs remained stable and patient has been afebrile the past 24 hours. - Plan Plan:: 05/19/20 * 34-year-old male with gradual onset (over the course of the last 3 days ) of facial swelling * Reports ongoing fungal infection involving several lesions on his hands and forearms and one on each facial cheek for about 3 weeks. * Reports recent exposure to MRSA. * Denies previous MRSA infection * Initial vital signs in the emergency department reveal a temp of 36.8 Celsius, pulse 103, respiratory rate 18, blood pressure 131/98, pulse ox 100% on room air. * Labs in the ED reveal: WBC 9.83, ESR 13, C-reactive protein 8.7, lactic acid 1.0 and the patient is Covid negative. * The patient did receive linezolid 600 mg IV and vancomycin 2 g IV in the emergency department. * Wound cultures and blood cultures were obtained prior to starting antibiotics PLAN: Cellulitis of neck, Facial cellulitis, Fever and chills, Hand ulceration, limited to breakdown of skin, Pustules determined by examination, Skin ulcer of face * Admit to [facility] * Patient will receive IV vancomycin with pharmacy to dose and IV Zosyn to treat cellulitis. * Awaiting culture and sensitivity report that was obtained in the emergency department * D5NS at 125 an hour * Patient to be up independently and ambulate in his room * Vital signs every 4 hours * Obtain urine drug screen that was ordered in the emergency department * Pain control * Contact isolation precautions * Regular diet * Repeat labs in the a.m. specifically inflammatory markers 05/20/20 * Continue vancomycin and Zosyn * Labs in the a.m. * community services coordinator to assist with patient as he did test positive for methamphetamine and amphetamines and marijuana. * Saline lock IV fluids
[2020-05-20] MEDS: Ibuprofen 600 MG Tab PO PRN (20:08)
[2020-05-20] MEDS: Vancomycin 1 GM, Vancomycin 500 MG in Sodium Chloride 0.9% 500 ML IV SCH (22:55)
[2020-05-21] MEDS: Piperacillin/Tazobactam 4.5 GM in Sodium Chloride 0.9% 100 ML IV SCH ×3 (01:21→18:00)
[2020-05-21] MEDS: Vancomycin 1 GM, Vancomycin 500 MG in Sodium Chloride 0.9% 500 ML IV SCH (06:09)
[2020-05-21] MEDS: Nicotine 7 MG/24 Hr Patch TRDERM SCH (09:22)
--- NOTE | 2020-05-21 14:43 | PCM.PN ---
- General Info Date of Service: 05/21/20 Admission Dx/Problem (Free Text): Admission Diagnosis/Problem Admission Diagnosis/Problem Cellulitis Subjective Update: Patient has no complaints today. Cellulitis to right side of face is significantly less erythematous. Scabbed areas to bilateral hands are no longer draining and are dry and crusting. Functional Status: Reports: Pain Controlled, Tolerating Diet, Ambulating, Urinating - Review of Systems General: Reports: No Symptoms HEENT: Reports: No Symptoms Pulmonary: Reports: No Symptoms Cardiovascular: Reports: No Symptoms Gastrointestinal: Reports: No Symptoms Genitourinary: Reports: No Symptoms Musculoskeletal: Reports: No Symptoms Skin: Reports: Pruritis (Above right eyebrow where pustules were located. Cellulitis to right side of forehead and face. Right ear red and swollen.) Neurological: Reports: No Symptoms Psychiatric: Reports: No Symptoms - Patient Data Vitals - Most Recent: Last Vital Signs Temp 97.7 F 05/21/20 12:21 Pulse 78 05/21/20 12:21 Resp 18 05/21/20 12:21 BP 111/82 05/21/20 12:21 Pulse Ox 98 05/21/20 12:21 Weight - Most Recent: 175 lb 8 oz I&O - Last 24 Hours: Intake & Output 05/20/20 05/21/20 05/21/20 22:59 06:59 14:59 Intake Total 1620 1200 Balance 1620 1200 Lab Results Last 24 Hours: Laboratory Results - last 24 hr 05/20/20 Range/Units 13:58 Vancomycin Trough 12.5 (10.0-20.0) [place] Results Last 24 Hours: Microbiology 05/19/20 13:30 Aerobic Blood Culture - Preliminary Blood - Venous NO GROWTH AFTER 2 DAYS Anaerobic Blood Culture - Preliminary NO GROWTH AFTER 2 DAYS 05/19/20 13:30 Aerobic Blood Culture - Preliminary Blood - Venous - Lab Draw NO GROWTH AFTER 2 DAYS Anaerobic Blood Culture - Preliminary NO GROWTH AFTER 2 DAYS 05/19/20 13:05 Wound Culture - Preliminary Hand, Left Beta Streptococcus Group A Med Orders - Current: Current Medications Hydromorphone HCl (Dilaudid) 0.5 mg IVPUSH Q2H PRN PRN Reason: Pain (severe 7-10) Last Admin: 05/19/20 23:24 Dose: 0.5 mg Documented by: Piperacillin Sod/Tazobactam (Sod 4.5 gm/ Sodium Chloride) 100 mls @ 25 mls/hr IV Q8H [facility] Last Admin: 05/21/20 09:18 Dose: 25 mls/hr Documented by: Ibuprofen (Motrin) 600 mg PO Q6H PRN PRN Reason: Pain (moderate 4-6) Last Admin: 05/20/20 20:08 Dose: 600 mg Documented by: Ketorolac Tromethamine (Toradol) 30 mg IV Q6H PRN PRN Reason: Pain (moderate 4-6) Last Admin: 05/20/20 15:45 Dose: 30 mg Documented by: Nicotine (Habitrol) 7 mg TRDERM DAILY [facility] Last Admin: 05/21/20 09:22 Dose: 7 mg Documented by: Ondansetron HCl (Zofran) 4 mg IV Q4H PRN PRN Reason: Nausea/Vomiting Discontinued Medications Hydromorphone HCl (Dilaudid) 0.5 mg IVPUSH ONETIME ONE Stop: 05/19/20 13:47 Last Admin: 05/19/20 14:21 Dose: 0.5 mg Documented by: Dextrose/Sodium Chloride (Dextrose 5%-Normal Saline) 1,000 mls @ 125 [facility] Admin: 05/19/20 13:23 Dose: 125 mls/hr Documented by: Linezolid 600 mg/ Premix 300 mls @ 300 mls/hr IV ONETIME ONE Stop: 05/19/20 14:01 Last Admin: 05/19/20 13:24 Dose: 300 mls/hr Documented by: Vancomycin HCl 2 gm/ Sodium (Chloride) 500 mls @ 250 mls/hr IV ONETIME ONE Stop: 05/19/20 13:18 Last Admin: 05/19/20 15:02 Dose: 250 mls/hr Documented by: Piperacillin Sod/Tazobactam (Sod 4.5 gm/ Sodium Chloride) 100 mls @ 200 mls/hr IV ONETIME ONE Stop: 05/19/20 15:19 Last Admin: 05/19/20 17:42 Dose: 200 mls/hr Documented by: Dextrose/Sodium Chloride (Dextrose 5%-Normal Saline) 1,000 mls @ 125 [facility]ls[facility] Last Admin: 05/19/20 21:16 Dose: 125 mls/hr Documented by: Vancomycin HCl 1 gm/Vancomycin HCl 250 mg/ Sodium Chloride 250 mls @ 166.667 mls/hr IV Q8H [facility] Stop: 05/20/20 18:00 Last Admin: 05/20/20 15:44 Dose: 166.667 mls/hr Documented by: Vancomycin HCl 1 gm/Vancomycin HCl 500 mg/ Sodium Chloride 500 mls @ 250 mls/hr IV Q8H [facility] Last Admin: 05/21/20 06:09 Dose: 250 mls/hr Documented by: Ibuprofen (Motrin) 600 mg PO ONETIME ONE Stop: 05/19/20 12:59 Last Admin: 05/19/20 13:25 Dose: 600 mg Documented by: Ondansetron HCl (Zofran) 4 mg IVPUSH ONETIME ONE Stop: 05/19/20 12:58 Last Admin: 05/19/20 13:25 Dose: 4 mg Documented by: Vancomycin HCl (Pharmacy To Dose - Vancomycin) 1 dose .XX ASDIRECTED PRN PRN Reason: RX TO DOSE VANCO - Exam Quality Assessment: No: Supplemental Oxygen, DVT Prophylaxis General: Alert, Oriented, Cooperative, No Acute Distress HEENT: Pupils Equal, Pupils Reactive, Mucous Membr. Moist/[place] Neck: Supple, Trachea Midline Lungs: Clear to Auscultation, Normal Respiratory Effort Cardiovascular: Regular Rate, Regular Rhythm, No Murmurs GI/Abdominal Exam: Normal Bowel Sounds, Soft, Non-Tender, No Distention (Male) Exam: Deferred Back Exam: Normal Inspection, Full Range of Motion Extremities: Normal Inspection, Normal Range of Motion, Non-Tender, No Pedal Edema, Normal Capillary Refill Peripheral Pulses: 2+: Radial (L), Radial (R), Dorsalis Pedis (L), Dorsalis Pedis (R) Skin: Warm Wound/Incisions: Healing Well, No Drainage (Scabs to right cheek and bilateral hands are dry and crusting. Less erythema noted to right side of face and neck. Right ear still having significant erythema and edema.) Neurological: No New Focal Deficit Psy/Mental Status: Alert, Normal Affect, Normal Mood Sepsis Event Note - Evaluation Sepsis Screening Result: No Definite Risk - Focused Exam Vital Signs: Vital Signs Temp Pulse Resp BP Pulse Ox 05/21/20 12:21 97.7 F 78 18 111/82 98 05/21/20 08:11 97.5 F 74 16 108/74 96 05/21/20 06:14 98.1 F 65 18 105/77 97 - Problem List & Annotations (1) Cellulitis of neck SNOMED Code(s): 06138053 Code(s): L03.221 - CELLULITIS OF NECK Status: Acute Priority: High Current Visit: Yes (2) Facial cellulitis SNOMED Code(s): 011506801 Code(s): L03.211 - CELLULITIS OF FACE Status: Acute Priority: High Current Visit: Yes (3) Fever and chills SNOMED Code(s): 270794151 Code(s): R50.9 - FEVER, UNSPECIFIED Status: Resolved Priority: High Current Visit: Yes (4) Hand ulceration, limited to breakdown of skin SNOMED Code(s): 02185507, 694278588, 878916314 Code(s): L98.491 - NON-PRS CHRONIC ULCER SKIN/ SITES LIMITED TO BRKDWN SKIN Status: Acute Priority: High Current Visit: Yes (5) Pustules determined by examination SNOMED Code(s): 852694844 Code(s): L08.9 - LOCAL INFECTION OF THE SKIN AND SUBCUTANEOUS TISSUE, UNSP Status: Acute Priority: High Current Visit: Yes (6) Skin ulcer of face SNOMED Code(s): 362809087 Code(s): L98.499 - NON-PRESSURE CHRONIC ULCER OF SKIN OF SITES W UNSP SEVERITY Status: Acute Priority: High Current Visit: Yes Qualifiers: Non-pressure ulcer stage: limited to breakdown of skin Qualified Code(s): L98.491 - Non-pressure chronic ulcer of skin of other sites limited to breakdown of skin - Problem List Review Problem List Initiated/Reviewed/Updated: Yes - Assessment Assessment:: 05/20/20 * Currently on vancomycin and Zosyn to treat cellulitis * Blood cultures show no growth after 1 day * Awaiting wound culture and sensitivity results * Patient's urine drug screen showing positive for methamphetamine and amphetamine and marijuana. Patient adamantly denies using amphetamine or m ethamphetamine. * Labs essentially unremarkable today * Vital signs remained stable and patient has been afebrile the past 24 hours. 05/21/20 * Wound cultures growing group A strep. Blood cultures show no growth. Patient does admit to looking at and biting at scabs and ulcers to his bilateral hands. * Vancomycin has been discontinued * Zosyn every 8 hours to treat cellulitis * Labs remain unremarkable * Vital signs remained stable and patient is afebrile. * Voices no complaints, other than he says his face is itching above right eyebrow where pustules were present. - Plan Plan:: 05/19/20 * 34-year-old male with gradual onset (over the course of the last 3 days ) of facial swelling * Reports ongoing fungal infection involving several lesions on his hands and forearms and one on each facial cheek for about 3 weeks. * Reports recent exposure to MRSA. * Denies previous MRSA infection * Initial vital signs in the emergency department reveal a temp of 36.8 Celsius, pulse 103, respiratory rate 18, blood pressure 131/98, pulse ox 100% on room air. * Labs in the ED reveal: WBC 9.83, ESR 13, C-reactive protein 8.7, lactic acid 1.0 and the patient is Covid negative. * The patient did receive linezolid 600 mg IV and vancomycin 2 g IV in the emergency department. * Wound cultures and blood cultures were obtained prior to starting antibiotics PLAN: Cellulitis of neck, Facial cellulitis, Fever and chills, Hand ulceration, limited to breakdown of skin, Pustules determined by examination, Skin ulcer of face * Admit to [facility] * Patient will receive IV vancomycin with pharmacy to dose and IV Zosyn to treat cellulitis. * Awaiting culture and sensitivity report that was obtained in the emergency department * D5NS at 125 an hour * Patient to be up independently and ambulate in his room * Vital signs every 4 hours * Obtain urine drug screen that was ordered in the emergency department * Pain control * Contact isolation precautions * Regular diet * Repeat labs in the a.m. specifically inflammatory markers 05/20/20 * Continue vancomycin and Zosyn * Labs in the a.m. * career services manager to assist with patient as he did test positive for methamphetamine and amphetamines and marijuana. * Saline lock IV fluids 05/21/20 * Discontinue vancomycin * Zosyn 4.5 g IV every 8 hours * Continue to monitor vital signs
[2020-05-22] MEDS: Piperacillin/Tazobactam 4.5 GM in Sodium Chloride 0.9% 100 ML IV SCH ×2 (00:41→09:14)
[2020-05-22] MEDS: Nicotine 7 MG/24 Hr Patch TRDERM SCH (09:13)
--- NOTE | 2020-05-22 13:05 | PCM.PN ---
- General Info Date of Service: 05/22/20 Admission Dx/Problem (Free Text): Admission Diagnosis/Problem Admission Diagnosis/Problem Cellulitis Subjective Update: Paul states he is feeling better. There is significantly less pain and swelling in the right side of his face. He does state that around his eyes they still itch but they are not painful. He has been afebrile and appetite is good. Functional Status: Reports: Pain Controlled - Review of Systems General: Reports: No Symptoms HEENT: Reports: Other (As above). Denies: Dysphasia, Eye Pain Pulmonary: Reports: No Symptoms Cardiovascular: Reports: No Symptoms Gastrointestinal: Reports: No Symptoms Musculoskeletal: Reports: No Symptoms Skin: Reports: No Symptoms Psychiatric: Reports: No Symptoms - Patient Data Vitals - Most Recent: Last Vital Signs Temp 98.4 F 05/22/20 12:27 Pulse 73 05/22/20 12:27 Resp 20 05/22/20 12:27 BP 114/93 H 05/22/20 12:27 Pulse Ox 99 05/22/20 12:27 Weight - Most Recent: 173 lb 3.2 oz I&O - Last 24 Hours: Intake & Output 05/21/20 05/22/20 05/22/20 22:59 06:59 14:59 Intake Total 1040 1500 Output Total 600 Balance 1040 900 [place] Results Last 24 Hours: Microbiology 05/19/20 13:05 Wound Culture - Preliminary Hand, Left Beta Streptococcus Group A Gram Positive Cocci 05/19/20 13:30 Aerobic Blood Culture - Preliminary Blood - Venous NO GROWTH AFTER 2 DAYS Anaerobic Blood Culture - Preliminary NO GROWTH AFTER 2 DAYS 05/19/20 13:30 Aerobic Blood Culture - Preliminary Blood - Venous - Lab Draw NO GROWTH AFTER 2 DAYS Anaerobic Blood Culture - Preliminary NO GROWTH AFTER 2 DAYS Med Orders - Current: Current Medications Clindamycin HCl (Cleocin) 600 mg PO Q8H [facility] Hydromorphone HCl (Dilaudid) 0.5 mg IVPUSH Q2H PRN PRN Reason: Pain (severe 7-10) Last Admin: 05/19/20 23:24 Dose: 0.5 mg Documented by: Ibuprofen (Motrin) 600 mg PO Q6H PRN PRN Reason: Pain (moderate 4-6) Last Admin: 05/20/20 20:08 Dose: 600 mg Documented by: Ketorolac Tromethamine (Toradol) 30 mg IV Q6H PRN PRN Reason: Pain (moderate 4-6) Last Admin: 05/20/20 15:45 Dose: 30 mg Documented by: Nicotine (Habitrol) 7 mg TRDERM DAILY [facility] Last Admin: 05/22/20 09:13 Dose: Not Given Documented by: Ondansetron HCl (Zofran) 4 mg IV Q4H PRN PRN Reason: Nausea/Vomiting Penicillin V Potassium (Veetids) 500 mg PO QID [facility] Saccharomyces Boulardii (Florastor) 500 mg PO TID [facility] Discontinued Medications Hydromorphone HCl (Dilaudid) 0.5 mg IVPUSH ONETIME ONE Stop: 05/19/20 13:47 Last Admin: 05/19/20 14:21 Dose: 0.5 mg Documented by: Dextrose/Sodium Chloride (Dextrose 5%-Normal Saline) 1,000 mls @ 125 mls/hr IV ASDIRECTED [facility] Last Admin: 05/19/20 13:23 Dose: 125 mls/hr Documented by: Linezolid 600 mg/ Premix 300 mls @ 300 mls/hr IV ONETIME ONE Stop: 05/19/20 14:01 Last Admin: 05/19/20 13:24 Dose: 300 mls/hr Documented by: Vancomycin HCl 2 gm/ Sodium (Chloride) 500 mls @ 250 mls/hr IV ONETIME ONE Stop: 05/19/20 13:18 Last Admin: 05/19/20 15:02 Dose: 250 mls/hr Documented by: Piperacillin Sod/Tazobactam (Sod 4.5 gm/ Sodium Chloride) 100 mls @ 200 mls/hr IV ONETIME ONE Stop: 05/19/20 15:19 Last Admin: 05/19/20 17:42 Dose: 200 mls/hr Documented by: Piperacillin Sod/Tazobactam (Sod 4.5 gm/ Sodium Chloride) 100 mls @ 25 mls/hr IV Q8H [facility] Last Admin: 05/22/20 09:14 Dose: 25 mls/hr Documented by: Dextrose/Sodium Chloride (Dextrose 5%-Normal Saline) 1,000 mls @ 125 mls/hr IV ASDIRECTED [facility] Last Admin: 05/19/20 21:16 Dose: 125 mls/hr Documented by: Vancomycin HCl 1 gm/Vancomycin HCl 250 mg/ Sodium Chloride 250 mls @ 166.667 mls/hr IV Q8H [facility] Stop: 05/20/20 18:00 Last Admin: 05/20/20 15:44 Dose: 166.667 mls/hr Documented by: Vancomycin HCl 1 gm/Vancomycin HCl 500 mg/ Sodium Chloride 500 mls @ 250 mls/hr IV Q8H [facility] Last Admin: 05/21/20 06:09 Dose: 250 mls/hr Documented by: Ibuprofen (Motrin) 600 mg PO ONETIME ONE Stop: 05/19/20 12:59 Last Admin: 05/19/20 13:25 Dose: 600 mg Documented by: Ondansetron HCl (Zofran) 4 mg IVPUSH ONETIME ONE Stop: 05/19/20 12:58 Last Admin: 05/19/20 13:25 Dose: 4 mg Documented by: Vancomycin HCl (Pharmacy To Dose - Vancomycin) 1 dose .XX ASDIRECTED PRN PRN Reason: RX TO DOSE VANCO - Exam Quality Assessment: No: Supplemental Oxygen HEENT: Pupils Equal, Pupils Reactive, Mucous Membr. Moist/[place], Other (Mild swelling and erythema on the right side of his face and periorbitally. Small excoriations also.) Lungs: Clear to Auscultation, Normal Respiratory Effort Cardiovascular: Regular Rate, Regular Rhythm GI/Abdominal Exam: Normal Bowel Sounds, Soft, Non-Tender, No Organomegaly, No Distention, No Abnormal Bruit, No Mass Extremities: Normal Range of Motion, Non-Tender, Normal Capillary Refill Skin: Other (Left hand with excoriations and mild swelling. Minimal erythema.) Psy/Mental Status: Alert, Normal Affect, Normal Mood Sepsis Event Note - Evaluation Sepsis Screening Result: No Definite Risk - Focused Exam Vital Signs: Vital Signs Temp Temp Pulse Pulse Resp BP BP 05/22/20 12:27 98.4 F 73 20 114/93 H 05/22/20 08:16 97.5 F 65 16 126/86 05/22/20 08:00 97.5 F 64 16 126/86 05/22/20 04:52 97.9 F 72 16 121/72 Pulse Ox 05/22/20 12:27 99 05/22/20 08:16 97 05/22/20 08:00 05/22/20 04:52 97 - Problem List & Annotations (1) Polysubstance abuse SNOMED Code(s): 124841765 Code(s): F19.10 - OTHER PSYCHOACTIVE SUBSTANCE ABUSE, UNCOMPLICATED Status: Acute Current Visit: Yes (2) Methamphetamine abuse SNOMED Code(s): 952309566 Code(s): F15.10 - OTHER STIMULANT ABUSE, UNCOMPLICATED Status: Acute Current Visit: Yes (3) Marijuana abuse SNOMED Code(s): 44894369 Code(s): F12.10 - CANNABIS ABUSE, UNCOMPLICATED Status: Acute Current Visit: Yes (4) Cellulitis of neck SNOMED Code(s): 08471566 Code(s): L03.221 - CELLULITIS OF NECK Status: Acute Priority: High Current Visit: Yes (5) Facial cellulitis SNOMED Code(s): 292309305 Code(s): L03.211 - CELLULITIS OF FACE Status: Acute Priority: High Current Visit: Yes (6) Hand ulceration, limited to breakdown of skin SNOMED Code(s): 31784169, 413806874, 882152627 Code(s): L98.491 - NON-PRS CHRONIC ULCER SKIN/ SITES LIMITED TO BRKDWN SKIN Status: Acute Priority: High Current Visit: Yes - Problem List Review Problem List Initiated/Reviewed/Updated: Yes - My Orders Last 24 Hours: My Active Orders 05/22/20 13:00 Penicillin V Potassium [Veetids] 500 mg PO QID clindamycin HCL [Cleocin] 600 mg PO Q8H 05/22/20 15:00 Saccharomyces Boulardii [Florastor] 500 mg PO TID - Assessment Assessment:: 05/20/20 * Currently on vancomycin and Zosyn to treat cellulitis * Blood cultures show no growth after 1 day * Awaiting wound culture and sensitivity results * Patient's urine drug screen showing positive for methamphetamine and amphetamine and marijuana. Patient adamantly denies using amphetamine or methamphetamine. * Labs essentially unremarkable today * Vital signs remained stable and patient has been afebrile the past 24 hours. 05/21/20 * Wound cultures growing group A strep. Blood cultures show no growth. Patient does admit to looking at and biting at scabs and ulcers to his bilateral hands. * Vancomycin has been discontinued * Zosyn every 8 hours to treat cellulitis * Labs remain unremarkable * Vital signs remained stable and patient is afebrile. * Voices no complaints, other than he says his face is itching above right eyebrow where pustules were present. 05/22/2020 * Blood cultures continue to show no growth * Wound culture of the left hand was positive for group A strep * Vancomycin was stopped yesterday and he received 1 dose of Zosyn this morning which will be stopped after this dose * No labs today * Vital signs stable and afebrile * Itching around the right eye continues but otherwise no significant complaints. - Plan Plan:: 05/19/20 * 34-year-old male with gradual onset (over the course of the last 3 days ) of facial swelling * Reports ongoing fungal infection involving several lesions on his hands and forearms and one on each facial cheek for about 3 weeks. * Reports recent exposure to MRSA. * Denies previous MRSA infection * Initial vital signs in the emergency department reveal a temp of 36.8 Celsius, pulse 103, respiratory rate 18, blood pressure 131/98, pulse ox 100% on room air. * Labs in the ED reveal: WBC 9.83, ESR 13, C-reactive protein 8.7, lactic acid 1.0 and the patient is Covid negative. * The patient did receive linezolid 600 mg IV and vancomycin 2 g IV in the emergency department. * Wound cultures and blood cultures were obtained prior to starting antibiotics PLAN: Cellulitis of neck, Facial cellulitis, Fever and chills, Hand ulceration, limited to breakdown of skin, Pustules determined by examination, Skin ulcer of face * [facility] * Patient will receive IV vancomycin with pharmacy to dose and IV Zosyn to treat cellulitis. * Awaiting culture and sensitivity report that was obtained in the emergency department * D5NS at 125 an hour * Patient to be up independently and ambulate in his room * Vital signs every 4 hours * Obtain urine drug screen that was ordered in the emergency department * Pain control * Contact isolation precautions * Regular diet * Repeat labs in the a.m. specifically inflammatory markers 05/20/20 * Continue vancomycin and Zosyn * Labs in the a.m. * payroll services analyst to assist with patient as he did test positive for metham phetamine and amphetamines and marijuana. * Saline lock IV fluids 05/21/20 * Discontinue vancomycin * Zosyn 4.5 g IV every 8 hours * Continue to monitor vital signs 05/21/2020 * Discontinue Zosyn * Switch to penicillin VK 500 mg 4 times daily * Clindamycin 600 mg every 8 * Plan discharge in the morning tomorrow.
[2020-05-22] MEDS: Saccharomyces Boulardii (Probiotic) 250 MG Cap PO SCH ×2 (14:19→20:42)
[2020-05-22] MEDS: Clindamycin HCl 150 MG Cap PO SCH ×2 (14:19→20:42)
[2020-05-22] MEDS: Penicillin V Potassium 500 MG Tab PO SCH ×3 (14:19→20:42)
[2020-05-23] MEDS: Clindamycin HCl 150 MG Cap PO SCH (05:50)
[2020-05-23] MEDS ORDERED: Clindamycin HCl 150 MG Cap PO SCH (09:00)
[2020-05-23] MEDS: Penicillin V Potassium 500 MG Tab PO SCH ×2 (09:32→12:02)
[2020-05-23] MEDS: Saccharomyces Boulardii (Probiotic) 250 MG Cap PO SCH (09:33)
[2020-05-23] MEDS: Nicotine 7 MG/24 Hr Patch TRDERM SCH (09:34)
--- NOTE | 2020-05-23 11:13 | PCM.DCSUM1 ---
Discharge Summary - Hospital Course HPI Initial Comments: 34-year-old male presents to the ED with acute onset of severe pain and swelling the right hemiface involving his upper and lower eyelid and right ear with extension of erythema and swelling to the posterior angle of his mandible and right lateral neck in zone 3. Patient reports that he has had an ongoing fungal infection involving several lesions on his hands forearms and one on each facial cheek for the last several [id number]--lesions on his hands have been present for about 3 weeks.. He states he was in contact with his ex- who apparently has recently diagnosed MRSA. Patient states he developed significant erythematous and swelling of his entire right hemiface that started about 3 days ago. He applied antifungal cream to his face and he states that initially it got better, but then significantly worse yesterday. He has developed fever and chills overnight and this morning. In fact he is experiencing rigors in the ED. Mild associated nausea and diarrhea. States he has had 3 loose bowel movements today with no blood. Feels weak lightheaded. Patient has never had a previous MRSA infection to his knowledge. Assessment/Plan Comment:: 05/19/20 * 34-year-old male with gradual onset (over the course of the last 3 days ) of facial swelling * Reports ongoing fungal infection involving several lesions on his hands and forearms and one on each facial cheek for about 3 weeks. * Reports recent exposure to MRSA. * Denies previous MRSA infection * Initial vital signs in the emergency department reveal a temp of 36.8 Celsius, pulse 103, respiratory rate 18, blood pressure 131/98, pulse ox 100% on room air. * Labs in the ED reveal: WBC 9.83, ESR 13, C-reactive protein 8.7, lactic acid 1.0 and the patient is Covid negative. * The patient did receive linezolid 600 mg IV and vancomycin 2 g IV in the emergency department. * Wound cultures and blood cultures were obtained prior to starting antibiotics PLAN: Cellulitis of neck, Facial cellulitis, Fever and chills, Hand ulceration, limited to breakdown of skin, Pustules determined by examination, Skin ulcer of face * Admit to [facility] * Patient will receive IV vancomycin with pharmacy to dose and IV Zosyn to treat cellulitis. * Awaiting culture and sensitivity report that was obtained in the emergency department * D5NS at 125 an hour * Patient to be up independently and ambulate in his room * Vital signs every 4 hours * Obtain urine drug screen that was ordered in the emergency department * Pain control * Contact isolation precautions * Regular diet * Repeat labs in the a.m. specifically inflammatory markers - Mortality Measure Prognosis:: Good Diagnosis: Stroke: No - Discharge Data Discharge Date: 05/23/20 Discharge Disposition: Home, Self-Care 01 Condition: Good - Referral to Home Health Primary Care Physician: PCP None - Discharge Diagnosis/Problem(s) (1) Polysubstance abuse SNOMED Code(s): 361573745 ICD Code: F19.10 - OTHER PSYCHOACTIVE SUBSTANCE ABUSE, UNCOMPLICATED Status: Acute (2) Methamphetamine abuse SNOMED Code(s): 862867643 ICD Code: F15.10 - OTHER STIMULANT ABUSE, UNCOMPLICATED Status: Acute (3) Marijuana abuse SNOMED Code(s): 40818693 ICD Code: F12.10 - CANNABIS ABUSE, UNCOMPLICATED Status: Acute (4) Cellulitis of neck SNOMED Code(s): 11923465 ICD Code: L03.221 - CELLULITIS OF NECK Status: Acute Priority: High (5) Facial cellulitis SNOMED Code(s): 717095377 ICD Code: L03.211 - CELLULITIS OF FACE Status: Acute Priority: High (6) Hand ulceration, limited to breakdown of skin SNOMED Code(s): 17780146, 676103065, 984618293 ICD Code: L98.491 - NON-PRS CHRONIC ULCER SKIN/ SITES LIMITED TO BRKDWN SKIN Status: Acute Priority: High - Patient Summary/Data Hospital Course: 05/21/20 * Wound cultures growing group A strep. Blood cultures show no growth. Patient does admit to looking at and biting at scabs and ulcers to his bilateral hands. * Vancomycin has been discontinued * Zosyn every 8 hours to treat cellulitis * Labs remain unremarkable * Vital signs remained stable and patient is afebrile. * Voices no complaints, other than he says his face is itching above right eyebrow where pustules were present. 05/22/2020 * Blood cultures continue to show no growth * Wound culture of the left hand was positive for group A strep * Vancomycin was stopped yesterday and he received 1 dose of Zosyn this morning which will be stopped after this dose * No labs today * Vital signs stable and afebrile * Itching around the right eye continues but otherwise no significant complaints. - Plan Plan:: 05/19/20 * 34-year-old male with gradual onset (over the course of the last 3 days ) of facial swelling * Reports ongoing fungal infection involving several lesions on his hands and forearms and one on each facial cheek for about 3 weeks. * Reports recent exposure to MRSA. * Denies previous MRSA infection * Initial vital signs in the emergency department reveal a temp of 36.8 Celsius, pulse 103, respiratory rate 18, blood pressure 131/98, pulse ox 100% on room air. * Labs in the ED reveal: WBC 9.83, ESR 13, C-reactive protein 8.7, lactic acid 1.0 and the patient is Covid negative. * The patient did receive linezolid 600 mg IV and vancomycin 2 g IV in the emergency department. * Wound cultures and blood cultures were obtained prior to starting antibiotics PLAN: Cellulitis of neck, Facial cellulitis, Fever and chills, Hand ulceration, limited to breakdown of skin, Pustules determined by examination, Skin ulcer of face * Admit to [facility] * Patient will receive IV vancomycin with pharmacy to dose and IV Zosyn to treat cellulitis. * Awaiting culture and sensitivity report that was obtained in the emergency department * D5NS at 125 an hour * Patient to be up independently and ambulate in his room * Vital signs every 4 hours * Obtain urine drug screen that was ordered in the emergency department * Pain control * Contact isolation precautions * Regular diet * Repeat labs in the a.m. specifically inflammatory markers 05/20/20 * Continue vancomycin and Zosyn * Labs in the a.m. * client services director to assist with patient as he did test positive for methamphetamine and amphetamines and marijuana. * Saline lock IV fluids 05/21/20 * Discontinue vancomycin * Zosyn 4.5 g IV every 8 hours * Continue to monitor vital signs 05/22/2020 * Discontinue Zosyn * Switch to penicillin VK 500 mg 4 times daily * Clindamycin 600 mg every 8 * Plan discharge in the morning tomorrow. 05/23/2020 * Discharged today on Pen-Vee K and clindamycin. - Patient Instructions Diet: Regular Diet as Tolerated Activity: As Tolerated Driving: May Drive Today Showering/Bathing: May Shower Notify Provider of: Fever, Increased Pain, Swelling and Redness Other/Special Instructions: Follow-up with primary care in 1 week. Return to the hospital if fever recurs or symptoms worsen. - Discharge Plan *PRESCRIPTION DRUG MONITORING PROGRAM REVIEWED*: Not Applicable *COPY OF PRESCRIPTION DRUG MONITORING REPORT IN PATIENT JAYCEE: Not Applicable Prescriptions/Med Rec: Clindamycin HCl 600 mg PO Q8H 6 Days #36 capsule Saccharomyces Boulardii [Florastor] 500 mg PO TID #90 cap Penicillin V Potassium [Veetids] 500 mg PO QID #24 tablet Home Medications: Home Meds Clindamycin HCl 600 mg PO Q8H 6 Days #36 capsule 05/23/20 [Rx] Penicillin V Potassium [Veetids] 500 mg PO QID #24 tablet 05/23/20 [Rx] Saccharomyces Boulardii [Florastor] 500 mg PO TID #90 cap 05/23/20 [Rx] Patient Handouts: Cellulitis, Adult, Sepsis, Diagnosis, Adult, Finding Treatment for Addiction, Methamphetamines Use Disorder Referrals: PCP,None [Primary Care Provider] - (Please follow-up with a primary care doctor the week of May 31. -[facility] [phone] -[facility] [phone] -[facility] [phone]) - Discharge Summary/Plan Comment DC Time >30 min.: Yes - General Info Date of Service: 05/24/20 Admission Dx/Problem (Free Text: Admission Diagnosis/Problem Admission Diagnosis/Problem Cellulitis Subjective Update: Patient states that his pain has essentially resolved. Denies any fever or chills. Functional Status: Reports: Pain Controlled - Review of Systems General: Reports: No Symptoms HEENT: Reports: No Symptoms Pulmonary: Reports: No Symptoms Cardiovascular: Reports: No Symptoms Gastrointestinal: Reports: No Symptoms Musculoskeletal: Reports: No Symptoms - Patient Data Vitals - Most Recent: Last Vital Signs Temp 97.7 F 05/23/20 05:46 Pulse 65 05/23/20 05:46 Resp 16 05/23/20 05:46 BP 114/67 05/23/20 05:46 Pulse Ox 96 05/23/20 05:46 Weight - Most Recent: 173 lb 12.8 oz I&O - Last 24 hours: Intake & Output 05/22/20 05/23/20 05/23/20 22:59 06:59 14:59 Intake Total 1780 300 Output Total 400 Balance 1380 300 Lab Results - Last 24 hrs: Laboratory Results - last 24 hr 05/23/20 05/23/20 Range/Units 04:30 04:30 WBC 4.41 (4.23-9.07) K/mm3 RBC 4.77 (4.63-6.08) M/mm3 Hgb 14.7 D (13.7-17.5) gm/dl Hct 43.2 (40.1-51.0) % MCV 90.6 (79.0-92.2) fl MCH 30.8 (25.7-32.2) pg MCHC 34.0 (32.2-35.5) g/dl RDW Std Deviation 39.7 (35.1-43.9) fL Plt Count 319 D (163-337) K/mm3 MPV 9.5 (9.4-12.3) fl Neut % (Auto) 43.4 (34.0-67.9) % Lymph % (Auto) 41.3 (21.8-53.1) % Robertson % (Auto) 10.2 (5.3-12.2) % Eos % (Auto) 3.9 (0.8-7.0) Baso % (Auto) 0.5 (0.1-1.2) % Neut # (Auto) 1.92 (1.78-5.38) K/mm3 Lymph # (Auto) 1.82 (1.32-3.57) K/mm3 Robertson # (Auto) 0.45 (0.30-0.82) K/mm3 Eos # (Auto) 0.17 (0.04-0.54) K/mm3 Baso # (Auto) 0.02 (0.01-0.08) K/mm3 Manual Slide Review Not Reportable Sodium 139 (136-145) mEq/L Potassium 4.3 (3.5-5.1) mEq/L Chloride 104 (98-107) mEq/L Carbon Dioxide 26 (21-32) mEq/L Anion Gap 13.3 (5-15) BUN 17 (7-18) mg/dL Creatinine 1.0 (0.7-1.3) mg/dL Est Cr Clr Drug Dosing 114.57 mL/min Estimated GFR (MDRD) > 60 (>60) mL/min BUN/Creatinine Ratio 17.0 (14-18) Glucose 97 (74-106) mg/dL Calcium 8.7 (8.5-10.1) mg/dL Magnesium 2.0 (1.8-2.4) mg/dl Total Bilirubin 0.3 (0.2-1.0) mg/dL AST 14 L (15-37) U/L ALT 20 (16-63) U/L Alkaline Phosphatase 53 (46-116) U/L C-Reactive Protein 1.9 H* (<1.0) mg/dL Total Protein 6.8 (6.4-8.2) g/dl Albumin 3.1 L (3.4-5.0) g/dl Globulin 3.7 gm/dL Albumin/Globulin Ratio 0.8 L (1-2) MICHELLE Results - Last 24 hrs: Microbiology 05/19/20 13:30 Aerobic Blood Culture - Preliminary Blood - Venous NO GROWTH AFTER 3 DAYS Anaerobic Blood Culture - Preliminary NO GROWTH AFTER 3 DAYS 05/19/20 13:30 Aerobic Blood Culture - Preliminary Blood - Venous - Lab Draw NO GROWTH AFTER 3 DAYS Anaerobic Blood Culture - Preliminary NO GROWTH AFTER 3 DAYS 05/19/20 13:05 Wound Culture - Preliminary Hand, Left Beta Streptococcus Group A Gram Positive Cocci Med Orders - Current: Current Medications Clindamycin HCl (Cleocin) 600 mg PO Q8H [facility] Last Admin: 05/23/20 09:32 Dose: 600 mg Documented by: Hydromorphone HCl (Dilaudid) 0.5 mg IVPUSH Q2H PRN PRN Reason: Pain (severe 7-10) Last Admin: 05/19/20 23:24 Dose: 0.5 mg Documented by: Ibuprofen (Motrin) 600 mg PO Q6H PRN PRN Reason: Pain (moderate 4-6) Last Admin: 05/20/20 20:08 Dose: 600 mg Documented by: Ketorolac Tromethamine (Toradol) 30 mg IV Q6H PRN PRN Reason: Pain (moderate 4-6) Last Admin: 05/20/20 15:45 Dose: 30 mg Documented by: Nicotine (Habitrol) 7 mg TRDERM DAILY [facility] Last Admin: 05/23/20 09:34 Dose: Not Given Documented by: Ondansetron HCl (Zofran) 4 mg IV Q4H PRN PRN Reason: Nausea/Vomiting Penicillin V Potassium (Veetids) 500 mg PO QID [facility] Last Admin: 05/23/20 09:32 Dose: 500 mg Documented by: Saccharomyces Boulardii (Florastor) 500 mg PO TID [facility] Last Admin: 05/23/20 09:33 Dose: 500 mg Documented by: Discontinued Medications Clindamycin HCl (Cleocin) 600 mg PO Q8H [facility] Last Admin: 05/23/20 05:50 Dose: Not Given Documented by: Hydromorphone HCl (Dilaudid) 0.5 mg IVPUSH ONETIME ONE Stop: 05/19/20 13:47 Last Admin: 05/19/20 14:21 Dose: 0.5 mg Documented by: Dextrose/Sodium Chloride (Dextrose 5%-Normal Saline) 1,000 mls @ 125 [facility]ls[facility] Last Admin: 05/19/20 13:23 Dose: 125 mls/hr Documented by: Linezolid 600 mg/ Premix 300 mls @ 300 mls/hr IV ONETIME ONE Stop: 05/19/20 14:01 Last Admin: 05/19/20 13:24 Dose: 300 mls/hr Documented by: Vancomycin HCl 2 gm/ Sodium (Chloride) 500 mls @ 250 mls/hr IV ONETIME ONE Stop: 05/19/20 13:18 Last Admin: 05/19/20 15:02 Dose: 250 mls/hr Documented by: Piperacillin Sod/Tazobactam (Sod 4.5 gm/ Sodium Chloride) 100 mls @ 200 mls/hr IV ONETIME ONE Stop: 05/19/20 15:19 Last Admin: 05/19/20 17:42 Dose: 200 mls/hr Documented by: Piperacillin Sod/Tazobactam (Sod 4.5 gm/ Sodium Chloride) 100 mls @ 25 mls/hr IV Q8H [facility] Last Admin: 05/22/20 09:14 Dose: 25 mls/hr Documented by: Dextrose/Sodium Chloride (Dextrose 5%-Normal Saline) 1,000 mls @ 125 mls/hr IV ASDIRECTED [facility] Last Admin: 05/19/20 21:16 Dose: 125 mls/hr Documented by: Vancomycin HCl 1 gm/Vancomycin HCl 250 mg/ Sodium Chloride 250 mls @ 166.667 mls/hr IV Q8H [facility] Stop: 05/20/20 18:00 Last Admin: 05/20/20 15:44 Dose: 166.667 mls/hr Documented by: Vancomycin HCl 1 gm/Vancomycin HCl 500 mg/ Sodium Chloride 500 mls @ 250 mls/hr IV Q8H [facility] Last Admin: 05/21/20 06:09 Dose: 250 mls/hr Documented by: Ibuprofen (Motrin) 600 mg PO ONETIME ONE Stop: 05/19/20 12:59 Last Admin: 05/19/20 13:25 Dose: 600 mg Documented by: Ondansetron HCl (Zofran) 4 mg IVPUSH ONETIME ONE Stop: 05/19/20 12:58 Last Admin: 05/19/20 13:25 Dose: 4 mg Documented by: Vancomycin HCl (Pharmacy To Dose - Vancomycin) 1 dose .XX ASDIRECTED PRN PRN Reason: RX TO DOSE VANCO - Exam Quality Assessment: Denies: Supplemental Oxygen General: Reports: Alert, Oriented HEENT: Reports: Pupils Equal, Mucous Membr. Moist/[place], Other (Minimal erythema with some raised lesion on the right anabaptist.) Neck: Reports: Supple, Other (Erythema has resolved) Lungs: Reports: Clear to Auscultation, Normal Respiratory Effort Cardiovascular: Reports: Regular Rate, Regular Rhythm GI/Abdominal Exam: Normal Bowel Sounds, Soft, Non-Tender, No Organomegaly, No Distention, No Abnormal Bruit, No Mass, Pelvis Stable Back Exam: Reports: Normal Inspection Extremities: Normal Range of Motion, No Pedal Edema, Normal Capillary Refill Skin: Reports: Other (Left hand with scabs but no longer erythematous or tender.) Psy/Mental Status: Reports: Alert, Normal Affect, Normal Mood
[2020-05-23] MEDS ORDERED: FLU VACC QS2020-21(6MOS UP)/PF 60 MCG/0.5 ML SYRINGE IM ONE (11:30)
== END 2020-05-23 12:23 | disposition home or self-care (01) | DRG 603 ==
LOC: JD.ED 12:26 → JD.MS 14:42
PROVIDERS: ADMIT Family Medicine; ATTEND Family Medicine
DX: L03.211 Cellulitis of face (principal); L03.221 Cellulitis of neck; F15.10 Other stimulant abuse, uncomplicated; F12.10 Cannabis abuse, uncomplicated; L98.491 Non-pressure chronic ulcer of skin of other sites limited to breakdown of skin; Z20.828 Contact with and (suspected) exposure to other viral communicable diseases; L08.9 Local infection of the skin and subcutaneous tissue, unspecified; F17.210 Nicotine dependence, cigarettes, uncomplicated; L03.213 Periorbital cellulitis; Z88.8 Allergy status to other drugs, medicaments and biological substances; Z98.890 Other specified postprocedural states; Z23 Encounter for immunization
CPT/HCPCS: 36415; 71045; 71045-26; 80048; 80053; 80202; 80306; 83605; 83735; 85007; 85025; 85027; 85610; 85652; 85730; 86140; 87040; 87070; 87077; 87184; 87186; 90686; 96365; 96375; 99284-25; 99285; A9270-GY; G0008; J1170; J1885; J2020; J2405; J2543; J3370; J7040; J7042; J7050; U0002

== ENCOUNTER 2023-05-25 09:00 | Emergency (ER) | payer SELFPAY ==
[2023-05-25 10:06] LABS: INFLUENZA A NAA NEGATIVE (NEGATIVE); RESPIRATORY SYNCYTIAL VIR NAA NEGATIVE (NEGATIVE)
[2023-05-25 10:39] LABS: BASOPHILS PERCENT AUTO 0.1 % (0.0-1.0); EOSINOPHILS PERCENT AUTO 0.4 % (0.0-6.0); HEMATOCRIT 43.7 % (42.0-52.0); HEMOGLOBIN 15.8 gm/dl (14.0-18.0); IMMATURE GRAN ABSOLUTE AUTO 0.03 K/mm3 (0.00-0.05); IMMATURE GRAN PERCENT AUTO 0.4 % (0.0-0.4); LYMPHOCYTES ABSOLUTE AUTO 0.5 K/mm3 (1.0-4.8); LYMPHOCYTES PERCENT AUTO 6.4 % (24.0-44.0); MEAN CORPUSCULAR HEMOGLOBIN 31.7 pg (28.0-32.0); MEAN CORPUSCULAR HGB CONC 36.2 g/dl (32.0-36.0); MEAN CORPUSCULAR VOLUME 87.6 fl (83.0-99.0); MEAN PLATELET VOLUME 9.7 fl (9.4-12.4); MONOCYTES ABSOLUTE AUTO 0.6 K/mm3 (0.0-0.8); MONOCYTES PERCENT AUTO 8.5 % (0.0-8.0); NEUTROPHILS PERCENT AUTO 84.2 % (41.0-71.0); PLATELET COUNT,PLT 235 K/mm3 (150-400); RED BLOOD CELL COUNT 4.99 M/mm3 (4.52-5.90); WHITE BLOOD CELL COUNT,WBC 7.14 K/mm3 (3.9-11.3)
[2023-05-25 10:44] LABS: CORONAVIRUS COVID-19 NAA POSITIVE (NEGATIVE)
[2023-05-25 10:49] LABS: BARBITURATE SCREEN,URINE NEGATIVE (CUTOFF=200); BENZODIAZEPINES SCREEN,URINE NEGATIVE (CUTOFF=150); BUPRENORPHINE SCREEN,URINE NEGATIVE (CUTOFF=10); METHADONE SCREEN, URINE NEGATIVE (CUT0FF=200); METHAMPHETAMINES SCREEN, URINE PRESUMPTIVE POSITIVE (CUTOFF=500); OXYCODONE SCREEN,URINE NEGATIVE (CUT0FF=100); THC SCREEN,URINE 20 NG/ML NEGATIVE (CUTOFF=50)
[2023-05-25 10:51] LABS: AMPHETAMINES SCREEN, URINE PRESUMPTIVE POSITIVE (CUTOFF=500)
[2023-05-25 10:54] LABS: ALANINE AMINOTRANSFERASE,ALT 17 U/L (16-63); ALBUMIN 3.9 g/dl (3.4-5.0); ALKALINE PHOSPHATASE 90 U/L (46-116); ANION GAP 16.3 (5-15); ASPARTATE AMNIOTRANSFERASE,AST 12 U/L (15-37); BILIRUBIN TOTAL 0.5 mg/dL (0.2-1.0); BLOOD UREA NITROGEN,BUN 7 mg/dL (7-18); BUN/CREATININE RATIO 6.4 (14-18); C-REACTIVE PROTEIN <0.2 mg/dL (<1.0); CARBON DIOXIDE,CO2 22 mEq/L (21-32); CHLORIDE,CL 102 mEq/L (98-107); CREATININE 1.1 mg/dL (0.7-1.3); ESTIMATED GFR 88 mL/min (>60); GLUCOSE RANDOM 102 mg/dL (70-99); MAGNESIUM 1.3 mg/dL (1.8-2.4); POTASSIUM,K 3.3 mEq/L (3.5-5.1); PROTEIN TOTAL,TP 7.7 g/dl (6.4-8.2); SODIUM,NA 137 mEq/L (136-145)
== END 2023-05-25 11:15 | disposition home or self-care (01) ==
LOC: SUPCPDRO 09:00 → JD.ED 09:00
DX: U07.1 COVID-19 (principal); R21 Rash and other nonspecific skin eruption; J45.909 Unspecified asthma, uncomplicated; F17.210 Nicotine dependence, cigarettes, uncomplicated; Z88.8 Allergy status to other drugs, medicaments and biological substances; Z86.16 Personal history of COVID-19; Z79.899 Other long term (current) drug therapy
CPT/HCPCS: 0241U; 36415; 80053; 80306; 83735; 85025; 86140; 99283; 99284

== ENCOUNTER 2023-07-21 19:17 | Emergency (ER) | payer SELFPAY ==
[2023-07-21] MEDS: Linezolid 600 MG in Premix Bag 1 BAG IV SCH (20:40)
[2023-07-21] MEDS: Ibuprofen 600 MG Tab PO ONE (20:40)
[2023-07-21 20:44] LABS: BASOPHILS PERCENT AUTO 0.2 % (0.0-1.0); EOSINOPHILS PERCENT AUTO 0.3 % (0.0-6.0); HEMATOCRIT 39.7 % (42.0-52.0); HEMOGLOBIN 13.9 gm/dl (14.0-18.0); IMMATURE GRAN ABSOLUTE AUTO 0.03 K/mm3 (0.00-0.05); IMMATURE GRAN PERCENT AUTO 0.3 % (0.0-0.4); LYMPHOCYTES ABSOLUTE AUTO 1.6 K/mm3 (1.0-4.8); MEAN CORPUSCULAR HEMOGLOBIN 30.8 pg (28.0-32.0); MEAN CORPUSCULAR VOLUME 87.8 fl (83.0-99.0); MONOCYTES ABSOLUTE AUTO 0.8 K/mm3 (0.0-0.8); MONOCYTES PERCENT AUTO 6.8 % (0.0-8.0); NEUTROPHILS ABSOLUTE AUTO 9.5 K/mm3 (1.8-7.7); NEUTROPHILS PERCENT AUTO 79.4 % (41.0-71.0); PLATELET COUNT,PLT 287 K/mm3 (150-400); RED BLOOD CELL COUNT 4.52 M/mm3 (4.52-5.90); WHITE BLOOD CELL COUNT,WBC 11.93 K/mm3 (3.9-11.3)
[2023-07-21] MEDS: Doxycycline Monohydrate 100 MG Cap PO ONE (20:45)
[2023-07-21 21:10] LABS: A/G RATIO 0.8 (1-2); ALBUMIN 3.4 g/dl (3.4-5.0); ANION GAP 11.8 (5-15); BILIRUBIN TOTAL 0.5 mg/dL (0.2-1.0); BUN/CREATININE RATIO 12.2 (14-18); C-REACTIVE PROTEIN 8.8 mg/dL (<1.0); CALCIUM 8.5 mg/dL (8.5-10.1); CREATININE 0.9 mg/dL (0.7-1.3); EST CRCL DRUG DOSING (CG) 125.77 mL/min; POTASSIUM,K 3.8 mEq/L (3.5-5.1); PROTEIN TOTAL,TP 7.7 g/dl (6.4-8.2)
[2023-07-21 22:45] LABS: BARBITURATE SCREEN,URINE NEGATIVE (CUTOFF=200); BENZODIAZEPINES SCREEN,URINE NEGATIVE (CUTOFF=150); BUPRENORPHINE SCREEN,URINE NEGATIVE (CUTOFF=10); METHADONE SCREEN, URINE NEGATIVE (CUT0FF=200); METHAMPHETAMINES SCREEN, URINE PRESUMPTIVE POSITIVE (CUTOFF=500); OXYCODONE SCREEN,URINE NEGATIVE (CUT0FF=100); THC SCREEN,URINE 20 NG/ML PRESUMPTIVE POSITIVE (CUTOFF=50)
[2023-07-21 22:48] LABS: AMPHETAMINES SCREEN, URINE PRESUMPTIVE POSITIVE (CUTOFF=500)
== END 2023-07-21 22:09 | disposition home or self-care (01) ==
LOC: JD.ED 19:17
DX: A49.02 Methicillin resistant Staphylococcus aureus infection, unspecified site (principal); Z88.8 Allergy status to other drugs, medicaments and biological substances; Z79.899 Other long term (current) drug therapy; Z86.16 Personal history of COVID-19
CPT/HCPCS: 36415; 80053; 80306; 85025; 86140; 87040; 87070; 87205; 87641; 96365; 99283; A9270; J2020; 99284

== ENCOUNTER 2024-06-25 03:01 | Emergency (ER) | payer SELFPAY ==
[2024-06-25] MEDS ORDERED: Sodium Chloride 0.9% 10 ML Syringe FLUSH PRN (03:57)
[2024-06-25] MEDS: Ketorolac 30 MG/ML SDV IM ONE (04:06)
[2024-06-25] MEDS: Haloperidol Lactate 5 MG/ML SDV IVPUSH ONE (04:07)
[2024-06-25] MEDS: Sodium Chloride 0.9% 1,000 ML IV ONE (04:07)
[2024-06-25] MEDS: Iopamidol 612 MG/ML 100 ML Bottle IVPUSH ONE (04:29)
[2024-06-25 04:46] LABS: BASOPHILS PERCENT AUTO 0.2 % (0.0-1.0); EOSINOPHILS ABSOLUTE AUTO 0.1 K/mm3 (0.0-0.4); HEMATOCRIT 43.5 % (42.0-52.0); HEMOGLOBIN 15.2 gm/dl (14.0-18.0); IMMATURE GRAN ABSOLUTE AUTO 0.02 K/mm3 (0.00-0.05); IMMATURE GRAN PERCENT AUTO 0.2 % (0.0-0.4); LYMPHOCYTES ABSOLUTE AUTO 1.9 K/mm3 (1.0-4.8); LYMPHOCYTES PERCENT AUTO 22.3 % (24.0-44.0); MEAN CORPUSCULAR HEMOGLOBIN 31.5 pg (28.0-32.0); MEAN CORPUSCULAR HGB CONC 34.9 g/dl (32.0-36.0); MEAN CORPUSCULAR VOLUME 90.1 fl (83.0-99.0); MEAN PLATELET VOLUME 10.3 fl (9.4-12.4); MONOCYTES ABSOLUTE AUTO 0.5 K/mm3 (0.0-0.8); MONOCYTES PERCENT AUTO 6.2 % (0.0-8.0); NEUTROPHILS ABSOLUTE AUTO 5.8 K/mm3 (1.8-7.7); NEUTROPHILS PERCENT AUTO 70.1 % (41.0-71.0); PLATELET COUNT,PLT 181 K/mm3 (150-400); RED BLOOD CELL COUNT 4.83 M/mm3 (4.52-5.90); WHITE BLOOD CELL COUNT,WBC 8.34 K/mm3 (3.9-11.3)
[2024-06-25] MEDS: VANCOmycin 2 GM/400 ML 2 GM in Premix Bag 1 BAG IV ONE (04:54)
[2024-06-25 05:11] LABS: A/G RATIO 1.2 (1-2); BILIRUBIN TOTAL 0.6 mg/dL (0.2-1.0); BUN/CREATININE RATIO 17.8 (14-18); CALCIUM 8.6 mg/dL (8.5-10.1); CREATININE 0.9 mg/dL (0.7-1.3); EST CRCL DRUG DOSING (CG) 131.71 mL/min; PROTEIN TOTAL,TP 7.3 g/dl (6.4-8.2)
[2024-06-25 05:15] LABS: LACTIC ACID 1.2 mmol/L (0.4-2.0)
== END 2024-06-25 07:11 | disposition home or self-care (01) ==
LOC: JD.ED 03:01
DX: L03.213 Periorbital cellulitis (principal); L29.9 Pruritus, unspecified; J45.909 Unspecified asthma, uncomplicated; F17.200 Nicotine dependence, unspecified, uncomplicated; Z86.16 Personal history of COVID-19; Z88.8 Allergy status to other drugs, medicaments and biological substances; Z79.899 Other long term (current) drug therapy
CPT/HCPCS: 36415; 70491; 70491-26; 80053; 83605; 85025; 87040; 87070; 87075; 87077; 87081; 87186; 87205; 96361; 96365; 96372; 96375; 99284-25; J1630; J1885; J3372; J7030; Q9967